=== PATIENT | female | born 1975 | race Caucasian/White ===

== ENCOUNTER → 2020-09-09 16:36 | Outpatient (CLI) | payer OTHER, SELFPAY ==
--- NOTE | ~2020-09-09 | MM_ITS ---
EXAMINATION: MM screening [facility] BI w alexandra HISTORY: Screening mammogram TECHNIQUE: Craniocaudal and mediolateral oblique 3-D tomosynthesis images were obtained and synthetic 2-D images were generated. CAD analysis was submitted and interpreted. COMPARISON: 07/12/2019, 05/25/2018 bilateral digital screening mammogram examinations BREAST PARENCHYMAL COMPOSITION: There are scattered areas of fibroglandular density. FINDINGS: There is no evidence of suspicious mass, calcification, or architectural distortion to sugg est malignancy in either breast. There has been no suspicious interval change. IMPRESSION: 1. No mammographic evidence of malignancy. 2. Recommend routine screening mammography in one year. BI-RADS Category 1: Negative Reviewed, dictated and finalized at location A. 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
== END ==
PROVIDERS: Visit Provider Obstetrics & Gynecology
DX: Z12.31 Encounter for screening mammogram for malignant neoplasm of breast (principal)
CPT/HCPCS: 77063; 77067

== ENCOUNTER → 2021-12-17 16:51 | Outpatient (CLI) | payer OTHER, SELFPAY ==
--- NOTE | ~2021-12-17 | MM_ITS ---
EXAMINATION: MM screening [facility] BI w alexandra HISTORY: Screening mammogram TECHNIQUE: Craniocaudal and mediolateral oblique 3-D tomosynthesis images were obtained and synthetic 2-D images were generated. CAD analysis was submitted and interpreted. COMPARISON: 09/09/2020, 07/12/2019, 05/25/2018 BREAST PARENCHYMAL COMPOSITION: There are scattered areas of fibroglandular density. FINDINGS: There is no evidence of suspicious mass, calcification, or architectural distortion to sugg est malignancy in either breast. There has been no suspicious interval change. IMPRESSION: 1. No mammographic evidence of malignancy. 2. Recommend routine screening mammography in one year. BI-RADS Category 1: Negative Reviewed, dictated and finalized at location A.
== END ==
PROVIDERS: Visit Provider Obstetrics & Gynecology
DX: Z12.31 Encounter for screening mammogram for malignant neoplasm of breast (principal)
CPT/HCPCS: 77063; 77067

== ENCOUNTER → 2023-02-28 16:25 | Outpatient (CLI) | payer OTHER, SELFPAY ==
--- NOTE | ~2023-02-28 | MM_ITS ---
EXAMINATION: MM screening [facility] BI w alexandra HISTORY: Screening mammogram TECHNIQUE: Craniocaudal and mediolateral oblique 3-D tomosynthesis images were obtained and synthetic 2-D images were generated. CAD analysis was submitted and interpreted. COMPARISON: 12/17/2021, 09/09/2020, 07/12/2019 BREAST PARENCHYMAL COMPOSITION: There are scattered areas of fibroglandular density. FINDINGS: No suspicious mass, calcification, or architectural distortion are identified in either theron ast to suggest malignancy. There has been no suspicious interval change. IMPRESSION: 1. No mammographic evidence of malignancy. 2. Recommend routine screening mammography in one year. BI-RADS Category 1: Negative Reviewed, dictated and finalized at location A.
== END ==
PROVIDERS: Visit Provider Obstetrics & Gynecology
DX: Z12.31 Encounter for screening mammogram for malignant neoplasm of breast (principal)
CPT/HCPCS: 77063; 77067

== ENCOUNTER 2023-03-03 16:27 | Emergency (ER) | payer OTHER, SELFPAY ==
[2023-03-03 16:36] VITALS: BP 132/72; PULSE 74; RESP 16; TEMP 37.1; O2SAT 100
--- NOTE | 2023-03-03 16:38 | ED.WOUNDLAC ---
HPI - Wound/Laceration General Chief Complaint: Skin/Abscess/Foreign Body Stated Complaint: poss infected finger Time Seen by Provider: 03/03/23 16:39 Source: patient Mode of arrival: ambulatory Limitations: no limitations History of Present Illness HPI narrative: 47-year-old female presented for complaint of redness and swelling around the right index worsening over few days. She states about 12 days ago she broke up a fight between two puppies and one bit the finger at this site. Today she pressed it and it drained pus out of the site. Patient cleansed it with hydrogen peroxide and used Neosporin. Denies numbness, tingling or weakness to the hand, denies fever or streaking from wound. Related Data Home Medications Medication Instructions Recorded Confirmed fluoxetine 40 mg capsule 40 mg PO DAILY 03/03/23 03/03/23 norgestrel 0.3 mg-ethinyl 1 tablet PO DAILY 03/03/23 03/03/23 estradiol 30 mcg tablet (Elinest) omeprazole 20 mg capsule,delayed 20 mg PO DAILY 03/03/23 03/03/23 release Allergies Allergy/AdvReac Type Severity Reaction Status Date / Time Sulfa (Sulfonamide Allergy Mild Rash Verified 03/03/23 16:36 Antibiotics) Review of Systems Review of Systems: CONSTITUTIONAL: Denies body aches, fever, chills, or sweats. EYES: Denies visual changes, redness, or discharge. ENT: Denies rhinorrhea, congestion CARDIOVASCULAR: Denies chest pain, palpitations, or edema. RESPIRATORY: Denies cough or dyspnea. GASTROINTESTINAL: Denies abdominal pain, nausea, vomiting, or diarrhea. SKIN: per HPI MUSCULOSKELETAL: Denies back pain, joint pain, or myalgia. NEUROLOGIC: Denies headache, numbness, tingling, or weakness. [facility] Past Medical History Medical History (Updated 03/03/23 @ 16:47 by Francisca Lopes APRN) No pertinent past medical history Comments At time of signature, I have reviewed and agree with nursing past medical, surgical, social and family history unless otherwise noted. Please see nursing chart for further information. There is no relevant family history pertinent to the presenting complaint Exam Narrative: GENERAL: Well-appearing HEAD: Normocephalic, atraumatic. EYES: conjunctivae clear, and EOMI. ENT: Mucous membranes moist. Oropharynx without edema, erythema or lesions. NECK: Supple. No lymphadenopathy CHEST: Clear to auscultation. HEART: Regular rate and rhythm. SKIN: Warm, dry. Left 2nd finger ulnar aspect with swelling and erythema around the nail, c/w paronychia; minimal fluctuance, no active drainage. Site is tender. NEURO: Alert and oriented x3. Course Course Emergency Course: Patient is aware of diagnosis, understands and agrees to treatment plan. Anticipatory guidance given. Patient agrees to follow-up as directed and is aware of reasons to seek care at the emergency department. Portions of this record may have been created with voice recognition software Level of Care: Express Care Visit Vital Signs Vital signs: Vital Signs Temperature 98.7 F 03/03/23 16:36 Pulse Rate 74 03/03/23 16:36 Respiratory Rate 16 03/03/23 16:36 Blood Pressure 132/72 03/03/23 16:36 Pulse Oximetry 100 03/03/23 16:36 Oxygen Delivery Room Air 03/03/23 16:36 Temperature 98.7 F 03/03/23 16:36 Pulse Rate 74 03/03/23 16:36 Respiratory Rate 16 03/03/23 16:36 Blood Pressure 132/72 03/03/23 16:36 Pulse Oximetry 100 03/03/23 16:36 Oxygen Delivery Room Air 03/03/23 16:36 Reviewed MDM - Wound/Laceration MDM Narrative Medical decision making narrative: Finger soaked in warm soapy water however the site still did not provide any fluctuance to indicate I&D. It did drain for her at home today. Patient understands and will start abx as directed. Discussed physical exam findings. Advised supportive measures and signs/symptoms to go to the ER. Pt is appropriate for outpt treatment and f/u. Differential Diagnosis Differential diagnosis: Likely
== END 2023-03-03 16:55 | disposition home or self-care (01) ==
PROVIDERS: Emergency Provider Nurse Practitioner Family
DX: L03.012 Cellulitis of left finger (principal); K21.9 Gastro-esophageal reflux disease without esophagitis; F41.9 Anxiety disorder, unspecified; F32.A Depression, unspecified
CPT/HCPCS: 99213; G0463

== ENCOUNTER 2023-11-16 16:11 | Outpatient (CLI) | payer OTHER, SELFPAY ==
--- NOTE | ~2023-11-16 | US_ITS ---
EXAMINATION: US thyroid DATE: 11/16/2023 16:51 INDICATION: Thyroid nodule. TECHNIQUE: Multiple ultrasound images of the thyroid were obtained. COMPARISON: Ultrasound 03/09/2016 FINDINGS: The right thyroid lobe measures 5.4 x 2.0 x 2.2 cm. The left thyroid lobe measures 5.1 x 2.0 x 2.1 c m. In the left thyroid lobe, there is a 2.8 cm solid, hypoechoic, wider than tall nodule with smooth margin without echogenic foci (TI-RADS TR4), stable from 03/09/16. In the right thyroid lobe, there is a 9 mm solid, hypoechoic, wider than tall nodule with smooth margin without echogenic foci (TR4). In the right thyroid lobe, there is a 6 mm mixed cystic and solid, hypoechoic, wider than tall nodule w ith smooth margin without echogenic foci (TR3). IMPRESSION: 1. Thyroid nodules, likely not clinically significant. No follow-up is needed. Reviewed, dictated and finalized at location E. 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
== END 2023-11-16 16:12 | disposition home or self-care (01) ==
PROVIDERS: PCP Family Medicine; Visit Provider Internal Medicine
DX: E04.2 Nontoxic multinodular goiter (principal); R94.6 Abnormal results of thyroid function studies
CPT/HCPCS: 76536

== ENCOUNTER 2023-12-18 06:34 | Outpatient (CLI) | payer OTHER, SELFPAY ==
--- NOTE | ~2023-12-18 | NM_ITS ---
EXAMINATION: NM thyroid scan w uptake DATE: 12/19/2023 09:57 INDICATION: Subclinical hyperthyroidism. Multinodular goiter. COMPARISON: Thyroid scintigraphy 03/02/2016, thyroid ultrasound 11/16/2023 TECHNIQUE: 0.525 mCi I-123 was administered orally. Scintigraphic images of the thyroid gland were o btained at 24 hours. Thyroid uptake was calculated by the technologist. FINDINGS: The thyroid uptake is 21% (normal 10-30%), with the right lobe measuring 8% uptake and the left 13%. There is no focal area of decreased or increased activity to suggest hypofunctioning or hyperfunction ing nodule. IMPRESSION: 1. Normal thyroid scintigraphy and 24-hour iodine uptake. Reviewed, dictated and finalized at location A.
== END 2023-12-18 06:35 | disposition home or self-care (01) ==
PROVIDERS: Visit Provider Internal Medicine
DX: R94.6 Abnormal results of thyroid function studies (principal); E04.1 Nontoxic single thyroid nodule; E05.90 Thyrotoxicosis, unspecified without thyrotoxic crisis or storm
CPT/HCPCS: 78014; A9516

== ENCOUNTER 2024-03-25 15:53 | Outpatient (CLI) | payer OTHER, SELFPAY ==
--- NOTE | ~2024-03-25 | MM_ITS ---
EXAMINATION: MM screening [facility] BI w alexandra HISTORY: Screening TECHNIQUE: Craniocaudal and mediolateral oblique 3-D tomosynthesis images were obtained and synthetic 2-D images were generated. CAD analysis was submitted and interpreted. COMPARISON: Comparison to multiple prior studies sequentially, with oldest reviewed study dated 05/25. BREAST PARENCHYMAL COMPOSITION: Not dense: There are scattered areas of fibroglandular density. FINDINGS: There is no evidence of suspicious mass, calcification, or architectural distortion to sugg est malignancy in either breast. There has been no suspicious interval change. IMPRESSION: 1. No mammographic evidence of malignancy. 2. Recommend routine screening mammography in one year. BI-RADS Category 1: Negative Reviewed, dictated and finalized at location B.
== END 2024-03-25 15:54 ==
LOC: MICIMG 15:54
PROVIDERS: PCP Family Medicine; Visit Provider Obstetrics & Gynecology
DX: Z12.31 Encounter for screening mammogram for malignant neoplasm of breast (principal)
CPT/HCPCS: 77063; 77067

== ENCOUNTER 2024-10-28 09:30 | Outpatient (CLI) | payer OTHER, SELFPAY ==
--- NOTE | ~2024-10-28 | US_ITS ---
EXAMINATION: US thyroid DATE: 10/28/2024 10:41 INDICATION: Thyroid nodule. TECHNIQUE: Multiple ultrasound images of the thyroid were obtained. COMPARISON: Thyroid ultrasound 11/16/2023, 03/09/2016 FINDINGS: The right thyroid lobe measures 5.3 x 1.9 x 1.9 cm. The left thyroid lobe measures 5.3 x 1.9 x 2.5 c m. In the left thyroid lobe, there is a 2.9 cm solid, hypoechoic, wider than tall nodule with ill-de fined margin without echogenic foci (TI-RADS TR4), stable from 03/09/16. In the right thyroid lobe, the re is a 6 mm solid, hypoechoic, wider than tall nodule with smooth margin without echogenic foci (TR4 ). In the right thyroid lobe, there is a 1.9 cm solid, isoechoic, wider than tall nodule with ill-def ined margin without echogenic foci (TR3), stable from 03/09/16. IMPRESSION: 1. Multinodular goiter, likely not clinically significant. No follow-up is needed. Reviewed, dictated and finalized at location B. NOLOGY ARCHITECT IMPRESSION: 1. Multinodular goiter, likely not clinically significant. No follow-up is need ed.
--- OUTSIDE RECORDS SUMMARY | 2024-10-31 12:27 | XMS_ITS | Clinical Summary ---
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 Gender Identity Not on file Sexual Orientation Not on file Plan of Treatment Health Maintenance Due Date Last Done Comments Hepatitis C Virus (HCV) Screening 1976 TdaP Immunization 1976 Hepatitis B Immunization (1 of 3 - 19+ 3-dose series) 1995 Pap Smear 1997 Cervical Cancer Screening (CCS) 2006 HPV/Cotest 2006 Discussion re Starting/Frequ ency of Mammograms 2016 Colonoscopy 2021 Colorectal Cancer Screening 2021 Influenza Immunization (#1) 2024 07/15/2020 SARS-COV-2 Immunization ( season) 2024 Respiratory Syncytial Virus (RSV) Immunization (Adult) (1 - 1-dose 75+ series) 2051 Meningococcal Immunization (ACWY) Aged Out No longer eligible based on patient's age to complete this topic Pneumococcal Immunization Combined Aged Out No longer eligible based on patient's age to complete this topic Rotavirus Immunization Aged Out No lo nger eligible based on patient's age to complete this topic
--- OUTSIDE RECORDS SUMMARY | 2024-10-31 12:27 | XMS_ITS | Clinical Summary ---
Author Organization [facility] [address] Address [address] [place] [id number] Care Team Providers Care Street Department Dispatcher Name Role Phone Colette Simpson MD Primary Care Provider + Allergies Active Allergy Reactions Criticality Noted Date Comments Sulfa Rash Medium 05/09/2024 Medications No known medications Active Problems No known active problems Social History Tobacco Use Types Packs/Day Years Used Date Smoking Tobacco: Never Assessed Personal Safety Answer Date Recorded Getting School Help Needed Not on file 04/24 Comments Unknown Sex and Gender Information Value Date Recorded Sex Assigned at Not on file 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 Gender Identity Not on file Sexual Orientation Not on file Last Filed Vital Signs Vital Sign Reading Time Taken Comments Blood Pressure 133/89 05/09/2024 11:40 AM CDT Pulse 76 05/09/2024 11:40 AM CDT Temperature - - Respiratory Rate - - Oxygen Saturation - - Inhaled Oxygen Concentration - - Weight 87.5 kg (193 lb) 05/09/2024 11:40 AM CDT Height 165.1 cm (5' 5 ) 05/09/2024 11:40 AM CDT Body Mass Index 32.12 05/09/2024 11:40 AM CDT Plan of Treatment Health Maintenance Due Date Last Done Comments Breast Cancer Screening-Mammogram 1976 Cervical Cancer Screening 1976 Colon Cancer Screening-Colonoscopy 1976 Depression Screening 1976 Hepatitis C Screening 1976 Pneumococcal vaccine <65 (1 of 2 - PCV) 1982 DTaP/Tdap/Td Vaccine (1 - Tdap) 1987 Hepatitis B Screening 1994 Regular Well Visit/Exam 18-64 1994 Covid-19 Vaccine ( season) 06/09/202411/2021, 01/16/2021 Influenza Vaccine (#1) 2024 07/15/2020 Insurance [facility] PL[facility] HMO/PPO Address: [facility] [id number] [place] [id number] Department Dispatcher Relationship Specialty Start Date End Date Colette Simpson MD PCP - General Family Medicine 04/24/24
--- OUTSIDE RECORDS SUMMARY | 2024-10-31 12:27 | XMS_ITS | Referral Summary ---
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
--- OUTSIDE RECORDS SUMMARY | 2024-10-31 12:27 | XMS_ITS | Patient Health Summary ---
Author Organization [facility] Address [address] [place] [address] Care Team Providers Care Stock Roller Name Role Phone Epi Shook DO Primary Care Provider [phone] Note from [facility],non-owned Affiliates and Associated Physician Practices is amultiple site organization consisting of ambulatory clinics and hospital sitesin [place], [place], [place] and [place]. This disclosure is being madepursuant to the Care Everywhere program and may not contain all information available regarding this patient. Last updated 18.[facility] Allergies * Sulfa Drugs(Rash) -Medium Criticality Medications * Be aware that medications may not be up to date on this document. Alwaysverify current medications with the patient. 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 Pulse 96 01/09/2020 9:18 AM CDT Temperature 37.9 ??C (100.2 ??F) 01/09/2020 9:18 AM C DT Respiratory Rate 16 01/09/2020 9:18 AM CDT Oxygen Saturation 98% 01/09/2020 9:18 AM CDT Inhaled Oxygen Concentration - - Weight 84.4 kg (186 lb) 01/09/2020 9:18 AM CDT Height 165.1 cm (5' 5 ) 01/09/2020 9:18 AM CDT Body Mass Index 30.95 01/09/2020 9:18 AM CDT Procedures * STREP A SCREEN - POINT OF CARE (AMB) STL(Performed 01/09/2020) Performed for Pharyngitis due to Streptococcus species * NM THYROID UPTAKE AND SCAN(Performed 07/27/2016) * FERRITIN(Performed 06/16/2016) * IRON + TIBC PANEL(Performed 06/16/2016) * T3 FREE DIALYSIS LC/MS(Performed 06/16/2016) * T4 FREE DIRECT DIALYSIS(Performed 06/16/2016) * TSH(Performed 06/16/2016) * TSH W HAMA TREATMENT(Performed 06/16/2016) Results * (ABNORMAL) STREP A SCREEN (01/09/2020) Strep A Rapid POCT Positive(A) Negative Strep A Internal Control Present Lot # [id number] Expiration Date 06/08/2021 Throat ENTIRE THROAT (SURFACE REGION OF NECK) / Unknown 01/09/2020 [employer] 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 Slightly enlarged thyroid lobes with increased uptake in the upper pole of the left lobe which likely represents a warm nodule. No definite evidence of a discrete cold nodule. 2. I-123 thyroid uptake of ??26.5% indicative of ??normal functioning thyroid gland. This report was approved ??by Bharat Peters ?? on 07/27/2016 12:47 PM . I, Dr. GLORIA ESCOBAR D.O. have personally reviewed and interpreted this examination/study. This report was electronically signed by GLORIA ESCOBAR D.O. ??on 07/27/2016 1:18 PM . Narrative 07/27/2016 1:18 PM CDT Procedure: Thyroid Uptake and Imaging. Agent: 0.2 mCi of I-123 Na Iodide capsule orally History: 41-year-old female with multinodular goiter and hyperthyroidism. Most recent labs on 06/16/2016, is TSH of ??0.3 micro-IU/mL, and FT4 of 1.2 ng/dL. Findings: Static anterior and anterior-oblique images show enlarged size of thyroid lobes with homogenous tracer distribution in the right lobe and focal increased uptake in the upper pole of the left lobe which represent a warm nodule. There is no discernible cold nodule. I-123 uptake within the thyroid gland at 24 hours 26.5%. ( Normal limits: 15%- 35%) Procedure Note Gloria Escobar, DO - 01/06/2018 Procedure: Thyroid Uptake and Imaging. Agent: 0.2 mCi of I-123 Na Iodide capsule orally History: 41-year-old female with multinodular goiter and hyperthyroidism. Mostrecent labs on 06/16/2016, is TSH of 0.3 micro-IU/mL, and FT4 of 1.2ng/dL. Findings: Static anterior and anterior-oblique images show enlarged size of thyroidlobes with homogenous tracer distribution in the right lobe and focalincreased uptake in the upper pole of the left lobe which represent a warmnodule. There is no discernible cold nodule. I-123 uptake within the thyroid gland at 24 hours 26.5%. ( Normal limits:15%- 35%) IMPRESSION Impression: 1. Slightly enlarged thyroid lobes with increased uptake in the upper poleof the left lobe which likely represents a warm nodule. No definiteevidence of a discrete cold nodule. 2. I-123 thyroid uptake of 26.5% indicative of normal functioningthyroid gland. This report was approved by Bharat Peters on 07/27/2016 12:47 PM . IDr. GLORIA D.O. have personally reviewed and interpreted thisexamination/study. This report was electronically signed by GLORIA ESCOBAR D.O. on07/27/2016 1:18 PM . Juan Stroud MD NM ORDERABLES * (ABNORMAL) TSH W HAMA TREATMENT (06/16/2016 12:40 PM CDT) TSH HAMA Treated 0.30(L) SEE BELOW mIU/L [facility] TSH Untreated 0.30(L) 0.40 - 4.50 mIU/L [facility] Comment: Female Reference Ranges for TSH: Premature Infants, (28-36) weeks ?? 1st week of life ? 0.20-27.90 mIU/L Term infants, (>37 weeks) Serum or Cord Blood ? 1.00-39.00 mIU/L ? 1-2 days ? 3.20-34.60 mIU/L ? 3-4 days ? 0.70-15.40 mIU/L ? 5 days-4 weeks ? 1.70-9.10 mIU/L ?1-11 months ? 0.80-8.20 mIU/L ? 1-19 years ? 0.50-4.30 mIU/L ?> or = 20 years ? 0.40-4.50 mIU/L TSH levels decline rapidly during the first week of life in most children, but may remain transiently elevated in a few individuals despite normal free T4 levels. For proper interpretation of an abnormal TSH from a thyroid screen, a Free T4 by [place]ialysis (TC [address]) or T4, Total (Thyroxine) ([place] [address]) should be considered. ? Ranges First Trimester ?0.26-2.66 mIU/L Second Trimester ?? 0.55-2.73 mIU/L Third Trimester ?0.43-2.91 mIU/L For additional information, please refer to http://education.Rebel Monkey/faq/WEO861 (This link is being provided for informational/educational purposes only.) Test Performed at: [facility] [address] [place], [place] ??[phone] KIRSTIE ESTRADA MD PHD 06/16/2016 12:4 0 PM CDT 06/16/2016 12:41 PM CDT Juan Stroud MD LAB - CHEMISTRY JULIETTE NICOLE Performing Organization Address [facility] de Phone Number [facility] * T3 FREE DIALYSIS LC/MS (06/16/2016 12:40 PM CDT) T3 Free 272 210 - 440 pg/dL [facility] Comment: Reference Ranges for Free T3: ?200-380 pg/dL (all trimesters) T3 Total 125 76 - 181 ng/dL [facility] Comment: Test Performed at: [facility] [address] ??[phone] KIRSTIE ESTRADA MD PHD 06/16/2016 12:4 0 PM CDT 06/16/2016 12:41 PM CDT Juan Stroud MD LAB - CHEMISTRY JULIETTE NICOLE Performing Organization Address [facility] de Phone Number [facility] * T4 FREE DIRECT DIALYSIS (06/16/2016 12:40 PM CDT) T4 Free Direct Dialysis 1.2 0.8 - 2.7 ng/dL [facility] Comment: Reference Ranges for T4, Free, Direct Dialysis: First Trimester: ?? 0.9-2.0 ng/dL Second Trimester: ??0.8-1.5 ng/dL Third Trimester: ?? 0.8-1.7 ng/dL This test was developed and its analytical performance characteristics have been determined by [facility]. It has not been cleared or approved by FDA. This assay has been validated pursuant to the CLIA regulations and is used for clinical purposes. Test Performed at: [facility] [address] ??[phone] KIRSTIE ESTRADA MD PHD Blood specimen (specimen) BLOOD SPECIMEN / Unknown 06/16/2016 12:40 PM CDT 06/16/2016 12:41 PM CDT Juan Stroud MD LAB - CHEMISTRY JULIETTE NICOLE Performing Organization Address [facility] de Phone Number [facility] * IRON + TIBC PANEL (06/16/2016 12:40 PM CDT) Iron 54 40 - 190 mcg/dL [facility] TIBC 411 250 - 450 mcg/dL (calc) [facility] Iron Saturation 13 11 - 50 % (calc) [facility] Comment: Test Performed at: [facility] [address] [place], [place] ??[phone] PEGGY NOLAN DO,MPH Serum 06/16/2016 12:4 0 PM CDT 06/16/2016 12:41 PM CDT Juan Stroud MD LAB - CHEMISTRY JULIETTE NICOLE Performing Organization Address [facility] de Phone Number [facility] * (ABNORMAL) TSH (06/16/2016 12:40 PM CDT) Pathologist [facility] TSH 0.30(L) mIU/L [facility] Comment: ?Reference Range ?> or = 20 Years ??0.40-4.50 ? Ranges ?First trimester ?0.26-2.66 ?Second trimester ?? 0.55-2.73 ?Third trimester ?0.43-2.91 Test Performed at: [facility] [address] [place], [place] ??[phone] PEGGY NOLAN DO,MPH Blood specimen (specimen) BLOOD SPECIMEN / Unknown 06/16/2016 12:40 PM CDT 06/16/2016 12:41 PM CDT Juan Stroud MD LAB - CHEMISTRY JULIETTE NICOLE [facility] * FERRITIN (06/16/2016 12:40 PM CDT) Ferritin 17 10 - 154 ng/mL [facility] Comment: Test Performed at: [facility] [address] [place] [address] ??[phone] PEGGY NOLAN DO,MPH Blood specimen (specimen) BLOOD SPECIMEN / Unknown 06/16/2016 12:40 PM CDT 06/16/2016 12:41 PM CDT Juan Stroud MD LAB - CHEMISTRY JULIETTE NICOLE [facility] Care Teams Stock Roller Relationship Specialty Start Date End Date Epi Shook DO PCP - General Internal Medicine 11/20/18
--- OUTSIDE RECORDS SUMMARY | 2024-10-31 12:27 | XMS_ITS | Data Portability ---
Author Organization [place] [employer], Main Office Address [address] [place] [address] Care Team Providers Care Farm Management Agent Name Role Phone [place] Primary Care Provider [place] Referring Provider [phone] Assessment No assessment recorded. Plan of Treatment Reminders Order Date Submit Date Provider Last Modified By Organization Details Last Modified Time Details Appointments None recorded. Lab lipid panel, serum 2022 023 [email or web address] Not available 17:31:28 HbA1c (hemoglobin A1c), blood 2022 023 [email or web address] Not available 17:30:23 BMP, serum or plasma 2022 023 [email or web address] Not available 3 17:30:42 T4, free, serum 2022 023 [email or web address] Not available 17:32:59 TSH, serum or plasma 2022 023 [email or web address] Not available 3 17:31:04 vitamin D, 25-hydroxy, total, serum 2022 023 [email or web address] Not available 3 17:32:43 ferritin, serum or plasma 2022 023 [email or web address] Not available 3 17:31:47 iron + total iron-bindin g capacity (TIBC), serum 2022 023 [email or web address] Not available 3 17:32:06 CBC w/ auto diff 2022 023 [email or web address] Not available 17:32:22 Referral gastroenter ologist referral 2022 023 aurelia Villegas MD, [address] [facility], [facility] [address], [place], [address], 3 10:27:45 Procedures None recorded. Surgeries None recorded. Imaging None recorded. Medication Orders omeprazole 20 mg capsule,del ayed release 2022 023 [email or web address] [facility] [address], [address] [facility], [place], [address], 18:30:14 Patient TargetsNo targets recorded. Patient InstructionsNo instructions recorded. 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 for Screening for malignant neoplasm of colon Referring Physician: Belem Puente, Family Medicine, Encounter Date: 02/08/2023 Results Created Date Observation Date Name Description Value Unit Range Abnormal Flag Note LastModifiedBy Organization Detail LastModifiedTime 02/10/20 23 02/09/2023 CBC/C OMPLE TE BLD COUNT W/DIF F white blood cells 8.9 x10'3 /uL 4.2-10 .8 Not Available [facility] (Lab) [address] [place], [address], 02/09/2023 19:32:30 02/10/20 23 02/09/2023 CBC/C OMPLE TE BLD COUNT W/DIF F red blood cells 4.70 x10'6 /uL 3.80-5 .20 Not Available [facility] (Lab) [address] [place], [address], 02/09/2023 19:32:30 02/10/20 23 02/09/2023 CBC/C OMPLE TE BLD COUNT W/DIF F hemoglobin 13.1 g/dL 12.0-1 5.6 Not Available [facility] (Lab) [address] [place], [address], 02/09/2023 19:32:30 02/10/20 23 02/09/2023 CBC/C OMPLE TE BLD COUNT W/DIF F hematocrit 40.8 % 35.7-4 5.7 Not Available [facility] (Lab) [address] [place], [address], 02/09/2023 19:32:30 02/10/20 23 02/09/2023 CBC/C OMPLE TE BLD COUNT W/DIF F mean red cell volume 86.8 fL 82.0-9 9.0 Not Available [facility] (Lab) [address] [place], [address], 02/09/2023 19:32:30 02/10/20 23 02/09/2023 CBC/C OMPLE TE BLD COUNT W/DIF F mean red cell hemoglobin 27.9 pg 27.0-3 3.0 Not Available [facility] (Lab) [address] [place], [address], 02/09/2023 19:32:30 02/10/20 23 02/09/2023 CBC/C OMPLE TE BLD COUNT W/DIF F mean RBC HGB concentratio n 32.1 g/dL 31.0-3 6.0 Not Available [facility] (Lab) [address] [place], [address], 02/09/2023 19:32:30 02/10/20 23 02/09/2023 CBC/C OMPLE TE BLD COUNT W/DIF F red cell distribution width 14.2 % 11.8-1 5.5 Not Available [facility] (Lab) [address] [place], [address], 02/09/2023 19:32:30 02/10/20 23 02/09/2023 CBC/C OMPLE TE BLD COUNT W/DIF F platelets 398 x10'3 /uL 150-40 0 Not Available [facility] (Lab) [address] [place], [address], 02/09/2023 19:32:30 02/10/20 23 02/09/2023 CBC/C OMPLE TE BLD COUNT W/DIF F mean platelet volume 10.7 fL 9.0-12 .4 Not Available [facility] (Lab) [address] [place], [address], 02/09/2023 19:32:30 02/10/20 23 02/09/2023 CBC/C OMPLE TE BLD COUNT W/DIF F neutrophils 72.6 % 39.0-7 2.0 high Not Available [facility] (Lab) [address] [place], [address], 02/09/2023 19:32:30 02/10/20 23 02/09/2023 CBC/C OMPLE TE BLD COUNT W/DIF F lymphocytes 18.4 % 16.0-4 7.0 Not Available [facility] (Lab) [address] [place], [address], 02/09/2023 19:32:30 02/10/2002/09/2023 CBC/C OMPLE TE BLD COUNT W/DIF F monocytes 7.3 % 5.0-12 .0 Not Available [facility] (Lab) [address] [place], [address], 02/09/2023 19:32:30 02/10/20 23 02/09/2023 CBC/C OMPLE TE BLD COUNT W/DIF F eosinophils 1.2 % 1.0-7. 0 Not Available [facility] (Lab) [address] [place], [address], 02/09/2023 19:32:30 02/10/20 23 02/09/2023 CBC/C OMPLE TE BLD COUNT W/DIF F basophils 0.3 % 0.0-2. 0 Not Available [facility] (Lab) [address] [place], [address], 02/09/2023 19:32:30 02/10/20 23 02/09/2023 CBC/C OMPLE TE BLD COUNT W/DIF F immature granulocytes 0.2 % 0.00-0 .50 Not Available [facility] (Lab) [address] [place], [address], 02/09/2023 19:32:30 02/10/20 23 02/09/2023 CBC/C OMPLE TE BLD COUNT W/DIF F neutrophils, absolute count 6.41 x10'3 /uL 1.5-8. 0 Not Available [facility] (Lab) [address] [place], [address], 02/09/2023 19:32:30 02/10/20 23 02/09/2023 CBC/C OMPLE TE BLD COUNT W/DIF F lymphocytes, absolute count 1.63 x10'3 /uL 1.07-3 .43 Not Available [facility] (Lab) [address] [place], [address], 02/09/2023 19:32:30 02/10/20 23 02/09/2023 CBC/C OMPLE TE BLD COUNT W/DIF F monocytes, absolute count 0.65 x10'3 /uL 0.29-0 .99 Not Available [facility] (Lab) [address] [place], [address], 02/09/2023 19:32:30 02/10/20 23 02/09/2023 CBC/C OMPLE TE BLD COUNT W/DIF F eosinophils, absolute count 0.11 x10'3 /uL 0.02-0 .53 Not Available [facility] (Lab) [address] [place], [address], 02/09/2023 19:32:30 02/10/20 23 02/09/2023 CBC/C OMPLE TE BLD COUNT W/DIF F basophils, absolute count 0.03 x10'3 /uL 0.01-0 .08 Not Available [facility] (Lab) [address] [place], [address], 02/09/2023 19:32:30 02/10/20 23 02/09/2023 CBC/C OMPLE TE BLD COUNT W/DIF F immature granulocytes ,absolute 0.02 x10'3 /uL 0.00-0 .05 Not Available [facility] (Lab) [address] [place], [address], 02/09/2023 19:32:30 02/10/20 23 02/09/2023 CBC/C OMPLE TE BLD COUNT W/DIF F nucleated red blood cells 0.0 % -0 Not Available [facility] (Lab) [address] [place], [address], 02/09/2023 19:32:30 02/10/20 23 02/09/2023 CBC/C OMPLE TE BLD COUNT W/DIF F NRBC# 0.00 x10'3 /uL Not Available [facility] (Lab) [address] [place], [address], 02/09/2023 19:32:30 02/10/20 23 02/09/2023 IRON/ TIBC PANEL total iron binding capacity 439 mcg/d L 265-47 5 Not Available [facility] (Lab) [address] [place], [address], 02/09/2023 20:03:01 02/10/20 23 02/09/2023 IRON/ TIBC PANEL % transferrin saturation 17 % 20-55 low Not Available [facility] (Lab) [address] [place], [address], 02/09/2023 20:03:01 02/10/20 23 02/09/2023 IRON/ TIBC PANEL unsaturated iron bind capacity 363 mcg/d L 126-38 2 Not Available [facility] (Lab) [address] [place], [address], 02/09/2023 20:03:01 02/10/20 23 02/09/2023 IRON/ TIBC PANEL iron 76 mcg/d L 42-175 Not Available [facility] (Lab) [address] [place], [address], 02/09/2023 20:03:01 02/10/20 23 02/09/2023 BASIC METAB OLIC PANEL sodium 135 mmol/ L 137-14 5 low Not Available [facility] (Lab) [address] [place], [address], 02/09/2023 20:00:44 02/10/20 23 02/09/2023 BASIC METAB OLIC PANEL potassium 4.1 mmol/ L 3.5-5. 1 Not Available [facility] (Lab) [address] [place], [address], 02/09/2023 20:00:44 02/10/20 23 02/09/2023 BASIC METAB OLIC PANEL chloride 105 mmol/ L 98-107 Not Available [facility] (Lab) [address] [place], [address], 02/09/2023 20:00:44 02/10/20 23 02/09/2023 BASIC METAB OLIC PANEL carbon dioxide 24 mmol/ L 22-30 Not Available [facility] (Lab) [address] [place], [address], 02/09/2023 20:00:44 02/10/20 23 02/09/2023 BASIC METAB OLIC PANEL anion gap 10.1 mmol/ L 14-22 low Not Available [facility] (Lab) [address] [place], [address], 02/09/2023 20:00:44 02/10/20 23 02/09/2023 BASIC METAB OLIC PANEL glucose 98 mg/dL 70-99 Not Available [facility] (Lab) [address] [place], [address], 02/09/2023 20:00:44 02/10/2002/09/2023 BASIC METAB OLIC PANEL BUN 15 mg/dL 8-19 Not Available [facility] (Lab) [address] [facility] [place], [address], 02/09/2023 20:00:44 02/10/2002/09/2023 BASIC METAB OLIC PANEL creatinine 0.63 mg/dL 0.66-1 .25 low Not Available [facility] (Lab) [address] [facility] [place], [address], 02/09/2023 20:00:44 02/10/2002/09/2023 BASIC METAB OLIC PANEL GFR >60 Refer ence Range : Sweetser ge GFR Healt hy Adult : >60 mL/mi n/1.7 3 m2 Chron ic Kidne y Disea se: 15-60 mL/mi n/1.7 3 m2 Kidne y Failu re: <15/m L/min /1.73 m2 www.n iddk. nih.g ov The MDRD study equat ion has not been valid ated in child sherin <18 years of age; pregn ant women ; the elder ly >85 years of age; or in some racia l or ethni c subgr oups, such as Hiswi nics. Outsi de the valid ated wesley eters , estim ated GFR is less accur ate, requi ring clini janel judgm ent on a case- by-ca se basis . Clini janel inter preta tion for other races and ages must be made by the clini placido. The MDRD study equat ion has not been valid ated for the evalu ation of serum creat inine relat ed to nutri anali l statu s or medic ation usage . For perso ns <18 years of age, a pedia tric GFR calcu lator is avail able on the [facility] websi te: https ://alison rand.cyndee de la garza.o denise/pr ofess ional s/kdo qi/gf r_cal culat or Not Available [facility] (Lab) [address] [place], [address], 02/09/2023 20:00:44 02/10/20 23 02/09/2023 BASIC METAB OLIC PANEL calcium 9.0 mg/dL 8.4-10 .2 Not Available [facility] (Lab) [address] [place], [address], 02/09/2023 20:00:44 02/10/20 23 02/09/2023 VITAM IN D 25-HY DROXY [id number] 41.4 NG/mL 30-100 Vitam in D Statu s: Defic ient: <20 ng/mL Insuf ficie nt: 20-29 ng/mL Suffi cient : 30-10 0 ng/mL Not Available [facility] (Lab) [address] [place], [address], 02/09/2023 20:09:37 02/10/20 23 02/09/2023 T4 FREE free T4 1.14 NG/dL 0.78-2 .19 Not Available [facility] (Lab) [address] [place], [address], 02/09/2023 20:10:18 02/10/20 23 02/09/2023 TSH thyroid-stim ulating hormone 0.351 uIU/m L 0.465- 4.680 low Not Available [facility] (Lab) [address] [place], [address], 02/09/2023 20:22:49 02/10/20 23 02/09/2023 KAMRYN TIN ferritin 34 NG/mL 6.24-1 37 Not Available [facility] (Lab) [address] [place], [address], 02/09/2023 20:41:50 02/10/20 23 02/09/2023 HEMOG LOBIN A1C HA1C 5.4 % 4.0-6. 0 Diabe jose alberto [place] pool Crite chance: <5.7% Consi stent with absen ce of diabe jose ablerto 5.7-6 .4% Consi stent with incre ased risk for diabe jose alberto (pred iabet es) >OR=6 .5% Consi stent with diabe jose alberto REFER ENCE: Diabe jose alberto Care 2016, 39(Cummins ppl.1 ):s13 -s22 Not Available Not Available 02/09/2023 21:31:50 09/17/20 21 09/17/2021 XR, foot, 3 or more view No observ ation record ed. [id number] Not Available 12/08/2022 00:34:34 10/25/19 22 XR, foot, 3 or more view No observ ation record ed. [id number] [email or web address] [place] [address], [place], [address], 12/08/2022 00:34:34 11/20/19 24 11/16/2023 US, thyro id No observ ation record ed. [email or web address] [facility] [address], [place], [address], 11/21/2023 12:02:29 Result Notes None recorded. Problems Name Problem SNOMED Code Status Onset Date Resolution Date Notes Provider Name and Address Organization Details Recorded Time Asthma 666847534 Active 2022 Apple larson [employer] null, [employer] 16:45:06 Hyperthyroidis m 54843307 Active 2022 Apple larson [employer] null, [employer] 16:45:53 Endometriosis (clinical) 200779254 Active 2022 Belem Puente MD [address] [facility] [address], [place], [address], [facility] [employer] 3 16:55:36 Gastroesophage al reflux disease 627799890 Active 2022 Belem Puente MD [address] [facility], [place], [address], [employer] 3 16:58:10 Increased thirst 225890434 Active 2022 Belem Puente MD [address], [place], [address], [employer] 3 17:04:48 Fatigue 82423592 Active 2022 Belem Puente MD [address], [place], [address], [employer] 3 17:04:57 Iron deficiency anemia 97589631 Active 2022 Belem Puente MD [address], [address], [place], [address], [employer] 3 17:07:05 Vitamin D deficiency 02956984 Active 2022 Belem Puente MD [address], [address], [place], [address], [employer] 3 17:07:16 Thyroid function tests abnormal 652278310 Active 2022 Belem Puente MD [address], [place], [address], [employer] 3 17:09:51 Problem Notes None recorded. Procedures Surgical History Date Name Laterality Status Provider Name and Address Organization Details Recorded Time section completed Belem Puente MD [address], [place], [address], [employer] 02/08/2023 16:54:29 laparoscopy completed Belem Puente MD [address], [place], [address], [employer] 02/08/2023 16:54:38 Imaging Results Imaging Date Name Status LastModified by Organiz ation Details LastModified Time 09/17/2021 XR, foot, 3 or more view completed [id number] Information not available 12/08/2022 00:34:34 10/25/2021 XR, foot, 3 or more view completed [id number] [facility] [address], [place], [address], 12/08/2022 00:34:34 11/16/2023 US, thyroid completed [email or web address] [facility] [address], [place], [address], 11/21/2023 12:02:29 Procedure Notes None recorded. Medical Equipment None Reported. Allergies Allergen ID Allergen Name Allergen Category Reaction Reaction Severity Criticality Documentation Date Start Date Code Code System Note Provider Name and Address Organization Details Recorded Time 13812 Substance with sulfonami de structure and antibacte rial mechanism of action (substanc e) medicatio n Not available Not available Not available 12/08/2022 37456 8003 SNOMED hives Belem Puente MD [address] [facility], [facility] [address], [place], [address] [place] [address] - [facility] [employer] 16:49:50 Medications Name Sig Start Date Stop Date Status Note LastModified by Organization Details LastModified Time fluoxetine 40 mg capsule TAKE 1 CAPSULE BY MOUTH ONCE DAILY active Not Available Not Available No t Available meloxicam 7.5 mg tablet 02/08 completed Not Available Not Available Not Available omeprazole 20 mg capsule,del ayed release Take 1 capsule every day by oral route. 2022 active Not Available Not Available Not Avai lable Elinest 0.3 mg-30 mcg tablet TAKE 1 TABLET BY MOUTH ONCE DAILY CONTINUOS LY active Not Available Not Available No t Available ID NOW COVID-19 Test Kit TEST DIRECTED active Not Available Not Available No t Available Vitals Date Recorded Body mass index (BMI) Body height Body weight Provider Name and Address Organization Details Last Updated DateTime 09/23/2021 30.8 kg/m2 165.1 cm 80858.59 g Not Available [employer] 12/08/2022 00:28:25 Date Recorded Body mass index (BMI) Body height Body weight Provider Name and Address Organization Details Last Updated DateTime 10/25/2021 32.1 kg/m2 165.1 cm 42498.33 g Not Available [employer] 12/08/2022 00:28:25 Date Recorded Body weight Body mass index (BMI) Body height Body temperature Heart rate Oxygen saturation Oxygen saturation in Arterial blood by Pulse oximetry Systolic blood pressure Diastolic blood pressure Provider Name and Address Organization Details Last Updated DateTime 3 27846.5 9 g 30.8 kg/m2 165.1 cm 98.3 [degF] 76 /min 98 % 98 % 114 mm[Hg] 76 mm[Hg] Apple larson CMA [place] [facility] 16:44:28 Social History Question Answer Notes LastModified by Organizat ion Details LastModified Time Tobacco Smoking Status Never Smoker Not Available [facility] 12/08/2022 00:27:11 What Is Your Level Of Alcohol Consumption? Occasional [email or web address] Information not available 02/08/2023 What Is Your Level Of Caffeine Consumption? Moderate [email or web address] Information not available 02/08/2023 What Type Of Diet Are You Following? REGULAR [email or web address] Information not available 02/08/2023 What Was The Date Of Your Most Recent Tobacco Screening? 02/08/2023 [email or web address] Information not available 02/08/2023 What Is Your Relationship Status? [email or web address] Information not available 02/08/2023 Do You Have Any Dietary Restrictions? No [email or web address] Information not available 02/08/2023 Sex: Female Functional Status Question Answer Note LastModified by Organization D etails LastModified Time What is your exercise level? Moderate [email or web address] Information not available 02/08/2023 Mental Status None recorded. Family History Relationship Description Onset Age of this Age Resolved Age Notes LastModified by Organization Details LastModified Time Father Essential hypertension [id number] Not available 12/08/2022 00:28:13 Mother Essential hypertension [id number] Not available 12/08/2022 00:28:13 Father Polyp of colon [email or web address] Not available 2022 16:50:52 Mother Polyp of colon [email or web address] Not available 2022 16:50:52 Paternal Uncle Malignant tumor of colon [email or web address] Not available 2022 17:02:50 Paternal Aunt Malignant tumor of colon [email or web address] Not available 2022 17:02:50 Medical History No medical history recorded. Gynecological HistoryNo gynecological history recorded. Obstetrics History GPAL:G 0 P 0 0 0 0 Past Encounters Encounter ID Performer Location Encounter Start Date Encounter Closed Date Diagnosis/Indication Diagnosis SNOMED-CT Code Diagnosis ICD10 Code Diagnosis Note [id number] [facility] [place] [address] [place] [address] 09/23/2021 00:00:00 09/23/2021 13:53:05 [id number] [facility] [place] [address] [place] [address] 10/25/2021 00:00:00 10/25/2021 10:21:20 [id number] Belem Puente MD [employer] [facility] [address] [place] [address] 02/08/2023 16:31:24 02/08/2023 17:21:57 Gastroesophageal reflux disease 442862904 K21.9 Screening for malignant neoplasm of colon 208410764 Z12.11 Increased thirst 6449826 03 R63.1 R63.5 Fatigue 50471087 R53.83 Hyperlipid emia screening 533448622 Z13.220 Iron defic iency anemia 52619531 D50.9 Vitamin D deficiency 347 73745 E55.9 Thyroid fu nction tests abnormal 840760935 R94.6 Health Concerns Section Related Observation LastModified by Organization Detai ls LastModified Time None Recorded Concern Status LastModified by Organization Details LastModified Time None Recorded Advance Directives Directive None Recorded Payers Encounter Date Sequence Insurance Name Policy Number Policy Douglas Covered Member ID Douglas Member ID Guarantor Name 02/08/2023 1 [facility] [id number] Ananda Ayala [id number] Jasmine Ayala Notes Date Note Type Note Provider Name and Address Organization Details Recorded Time 02/08/2023 text/html Has thyroid nodule-had benign biopsyhad labs that showed overactive thyroid but nothing was done about itlast labs 6 years agomood is doing well on fluoxetine She thinks she is more thirsty than she should be 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
--- OUTSIDE RECORDS SUMMARY | 2024-10-31 12:27 | XMS_ITS | Referral Summary ---
Author Organization [facility] [employer] Address [address] [address] Care Team Providers Care Substitute Crossing Guard Name Role Phone Epi Shook DO Primary Care Provider [phone] Source Comments [facility],non-owned Affiliates and Associated Physician Practices is amultiple site organization consisting of ambulatory clinics and hospital sitesin [place], [place], [place] and [place]. This disclosure is being madepursuant to the Care Everywhere program and may not contain all information available regarding this patient. Last updated 18.[facility] [employer] Allergies Active Allergy Reactions Criticality Noted Date Comments Sulfa Drugs Rash Medium 06/15/2016 Medications * Be aware that medications may not be up to date on this document. Alwaysverify current medications with the patient. 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
--- OUTSIDE RECORDS SUMMARY | 2024-10-31 12:27 | XMS_ITS | Clinical Summary ---
Author Organization [facility] Address [address] [place] [address] Care Team Providers Care Blender/Braze Applicator Name Role Phone Eip Shook DO Primary Care Provider +1 [phone] Source Comments [facility],non-owned Affiliates and Associated Physician Practices is amultiple site organization consisting of ambulatory clinics and hospital sitesin [place], [place], [place] and [place]. This disclosure is being madepursuant to the Care Everywhere program and may not contain all information available regarding this patient. Last updated 18.[facility] Allergies Active Allergy Reactions Criticality Noted Date [...] Comments Blood Pressure 110/70 11/20/2018 9:27 AM PROJECT MANAGEMENT SPECIALIST Pulse 96 01/09/2020 9:18 AM CDT Temperature [...] 01/09/2020 9:18 AM CDT Plan of Treatment Health Maintenance Due Date Last Done Comments COLOGUARD (AGES 45-75) - COL ON CA SCREENING 1976 COLON MONITORING 1976 COLONOSCOPY - COLON CA SCREENING 1976 CT COLONOGRAPHY - COLON CA SCREENING 1976 Colorectal Cancer Screening 1976 FIT - COLON CA SCREENING 1976 FLEX SIG - COLON CA SCREENING 1976 LIPID TESTING 1976 MAMMOGRAM 1976 PAP SMEAR 1976 HIV SCREENING 1991 HEPATITIS C SCREENING 06/17/1994 DTAP/TDAP/TD VACCINES (1 - Tdap) 1995 HEPATITIS B VACCINE (1 of 3 - 19+ 3-dose series) 1995 SCREENING FOR DIABETES 01/09/2020 COVID-19 VACCINE ( - 2023-2 5 season) 2024 INFLUENZA VACCINE (#1) 2024 DEPRESSION SCREENING 10/09/2024 ZOSTER VACCINE (1 of 2) 2026 HIB VACCINE Aged Out No longer eligi ble based on patient's age to complete this topic HPV VACCINE Aged Out No longer eligi ble based on patient's age to complete this topic MENINGOCOCCAL (Group B) VACCINE Aged Out No longer eligible based on patient's age to complete this topic MENINGOCOCCAL VACCINE Aged Out No klaudia raul eligible based on patient's age to complete this topic PNEUMOCOCCAL VACCINE Aged Out No long er eligible based on patient's age to complete this topic Care Teams Blender/Braze Applicator Relationship Specialty Start Date End Date Epi Shook DO PCP - General Internal Medicine 11/20/18
== END 2024-10-28 09:31 | disposition home or self-care (01) ==
PROVIDERS: PCP Family Medicine; Visit Provider Internal Medicine
DX: E04.2 Nontoxic multinodular goiter (principal); E05.90 Thyrotoxicosis, unspecified without thyrotoxic crisis or storm
CPT/HCPCS: 76536

== ENCOUNTER 2024-11-22 12:22 | Outpatient (CLI) | payer OTHER, SELFPAY ==
--- NOTE | ~2024-11-22 | US_ITS ---
EXAMINATION: US FNA w image guidance DATE: 11/22/2024 INDICATION: Right thyroid nodule TECHNIQUE: A time-out was performed to verify the patient's name, date of , and procedure to be performed . The procedure and its benefits and risks were discussed with the patient. Risks specifically discus sed included bleeding and infection. The patient understood the risks and agreed to proceed. The neck was prepped and draped in the usual sterile manner. 7 mL 1% lidocaine was used for local anesthesia . 6 passes were made with a 25G needle into the lesion. Appropriate needle location was documented with continuous sonographic guidance. A sterile bandage was applied. There were no immediate compli cations. FINDINGS: Grayscale ultrasound images demonstrate biopsy needles advanced into the 1.9 cm TI RADS 3 right thyro id nodule. IMPRESSION: 1. Successful ultrasound-guided fine needle aspiration of a 1.9 cm there is 3 right thyroid nodule. Reviewed, dictated and finalized at location A. BASTING MACHINE OPERATOR
--- OUTSIDE RECORDS SUMMARY | 2024-11-22 12:29 | XMS_ITS | Clinical Summary ---
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
--- OUTSIDE RECORDS SUMMARY | 2024-11-22 12:29 | XMS_ITS | Referral Summary ---
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 CHOICE PLUS [facility] HMO/PPO Address: [facility] [address] [place] [address] Care Teams Poultry Farm Laborer Relationship Specialty Start Date End Date Colette Simpson MD PCP - General Family Medicine 04/24/24
--- OUTSIDE RECORDS SUMMARY | 2024-11-22 12:29 | XMS_ITS | Referral Summary ---
Author Organization [facility] Address [address] [place] [address] Care Team Providers Care Ruby On Rails Software Developer Name Role Phone Epi Shook DO Primary Care Provider [phone] Source Comments [facility],non-owned Affiliates and Associated Physician Practices is amultiple site organization consisting of ambulatory clinics and hospital sitesin [place], [place], [place] and [place]. This disclosure is being madepursuant to the Care Everywhere program and may not contain all information available regarding this patient. Last updated 18.[facility] To You Allergies Active Allergy Reactions Criticality Noted Date [...] Comments Blood Pressure 110/70 11/20/2018 9:27 AM SLUMBER ROOM ATTENDANT Pulse 96 01/09/2020 9:18 AM CDT Temperature 37.9 C (100.2 F) 01/09/2020 9:18 AM CDT Respiratory Rate 16 01/09/2020 9:18 AM CDT Oxygen Saturation 98% 01/09/2020 9:18 AM CDT Inhaled Oxygen Concentration - - Weight 84.4 kg (186 lb) 01/09/2020 9:18 AM CDT Height 165.1 cm (5' 5 ) 01/09/2020 9:18 AM CDT Body Mass Index 30.95 01/09/2020 9:18 AM CDT Plan of Treatment Not on file Care Teams Ruby On Rails Software Developer Relationship Specialty Start Date End Date Epi Shook DO PCP - General Internal Medicine 11/20/18
--- OUTSIDE RECORDS SUMMARY | 2024-11-22 12:29 | XMS_ITS | Clinical Summary ---
Author Organization [facility] Address [address] [facility] [place] [address] Care Team Providers Care Inside Sales Trainer Name Role Phone Epi Shook DO Primary Care Provider +[phone] Source Comments [facility],non-owned Affiliates and Associated Physician Practices is amultiple site organization consisting of ambulatory clinics and hospital sitesin [place], [place], [place] and [place]. This disclosure is being madepursuant to the Care Everywhere program and may not contain all information available regarding this patient. Last updated 18.[facility] Allergies Active Allergy Reactions Criticality Noted Date [...] Comments Blood Pressure 110/70 11/20/2018 9:27 AM STUNT WOMAN Pulse 96 01/09/2020 9:18 AM CDT Temperature [...] 1995 SCREENING FOR DIABETES 01/09/2020 COVID-19 VACCINE (1 - 2023-2 5 season) 2024 INFLUENZA VACCINE [...] age to complete this topic Care Teams Inside Sales Trainer Relationship Specialty Start Date End Date Epi Shook DO PCP - General Internal Medicine 11/20/18
--- OUTSIDE RECORDS SUMMARY | 2024-11-22 12:29 | XMS_ITS | Clinical Summary ---
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
--- OUTSIDE RECORDS SUMMARY | 2024-11-22 12:29 | XMS_ITS | Data Portability ---
Author Organization [place] [facility] [employer], Main Office Address [address] [place] [address] Care Team Providers Care Weigher And Charger Name Role Phone [place] Primary Care Provider [place] Referring Provider [phone] Assessment No assessment recorded. Plan of Treatment Reminders Order Date Submit Date Provider Last Modified By Organization Details Last Modified Time Details Appointments None recorded. Lab lipid panel, serum 2022 023 Not available 17:31:28 HbA1c (hemoglobin A1c), blood 2022 023 [email or web address] Not available 17:30:23 BMP, serum or plasma 2022 023 [email or web address] Not available 3 17:30:42 T4, free, serum 2022 023 [id number] Not available 17:32:59 TSH, serum or plasma 2022 023 [email or web address] Not available 3 17:31:04 vitamin D, 25-hydroxy, total, serum 2022 023 Not available 3 17:32:43 ferritin, serum or plasma 2022 023 [email or web address] Not available 3 17:31:47 iron + total iron-bindin g capacity (TIBC), serum 2022 023 [id number] Not available 3 17:32:06 CBC w/ auto diff 2022 023 [email or web address] Not available 17:32:22 Referral gastroenter ologist referral 2022 023 aurelia Villegas MD, [address] [facility], [facility] [address], [place], [address], 3 10:27:45 Procedures None recorded. Surgeries None recorded. Imaging None recorded. Medication Orders omeprazole 20 mg capsule,del ayed release 2022 023 [email or web address] [facility] [address] [facility], [place], [address], 18:30:14 Patient TargetsNo targets recorded. Patient InstructionsNo instructions recorded. Reason for Referral Civil Cad Designer Referral for Screening for malignant neoplasm of colon Referring Physician: Belem Puente, Family Medicine, Encounter Date: 02/08/2023 Results Created Date Observation Date Name Description Value Unit Range Abnormal Flag Note LastModifiedBy Organization Detail LastModifiedTime 02/10/20 23 02/09/2023 CBC/C OMPLE TE BLD COUNT W/DIF F white blood cells 8.9 x10'3 /uL 4.2-10 .8 Not Available [facility] (Lab) [address] [place], [address], 02/09/2023 19:32:30 02/10/20 23 02/09/2023 CBC/C OMPLE TE BLD COUNT W/DIF F red blood cells 4.70 x10'6 /uL 3.80-5 .20 Not Available [facility] (Lab) [address] [place], [address], 02/09/2023 19:32:30 02/10/20 23 02/09/2023 CBC/C OMPLE TE BLD COUNT W/DIF F hemoglobin 13.1 g/dL 12.0-1 5.6 Not Available [facility] (Lab) [address] [place], [address], 02/09/2023 19:32:30 02/10/20 23 02/09/2023 CBC/C OMPLE TE BLD COUNT W/DIF F hematocrit 40.8 % 35.7-4 5.7 Not Available [facility] (Lab) [address] [place], [address], 02/09/2023 19:32:30 02/10/20 23 02/09/2023 CBC/C OMPLE TE BLD COUNT W/DIF F mean red cell volume 86.8 fL 82.0-9 9.0 Not Available [facility] (Lab) [address] [place], [address], 02/09/2023 19:32:30 02/10/20 23 02/09/2023 CBC/C OMPLE TE BLD COUNT W/DIF F mean red cell hemoglobin 27.9 pg 27.0-3 3.0 Not Available [facility] (Lab) [address] [place], [address], 02/09/2023 19:32:30 02/10/20 23 02/09/2023 CBC/C OMPLE TE BLD COUNT W/DIF F mean RBC HGB concentratio n 32.1 g/dL 31.0-3 6.0 Not Available [facility] (Lab) [address] [place], [address], 02/09/2023 19:32:30 02/10/20 23 02/09/2023 CBC/C OMPLE TE BLD COUNT W/DIF F red cell distribution width 14.2 % 11.8-1 5.5 Not Available [facility] (Lab) [address] [place], [address], 02/09/2023 19:32:30 02/10/20 23 02/09/2023 CBC/C OMPLE TE BLD COUNT W/DIF F platelets 398 x10'3 /uL 150-40 0 Not Available [facility] (Lab) [address] [place], [address], 02/09/2023 19:32:30 02/10/20 23 02/09/2023 CBC/C OMPLE TE BLD COUNT W/DIF F mean platelet volume 10.7 fL 9.0-12 .4 Not Available [facility] (Lab) [address] [place], [address], 02/09/2023 19:32:30 02/10/20 23 02/09/2023 CBC/C OMPLE TE BLD COUNT W/DIF F neutrophils 72.6 % 39.0-7 2.0 high Not Available [facility] (Lab) [address] [place], [address], 02/09/2023 19:32:30 02/10/20 23 02/09/2023 CBC/C OMPLE TE BLD COUNT W/DIF F lymphocytes 18.4 % 16.0-4 7.0 Not Available [facility] (Lab) [address] [place], [address], 02/09/2023 19:32:30 02/10/2002/09/2023 CBC/C OMPLE TE BLD COUNT W/DIF F monocytes 7.3 % 5.0-12 .0 Not Available [facility] (Lab) [address] [place], [address], 02/09/2023 19:32:30 02/10/20 23 02/09/2023 CBC/C OMPLE TE BLD COUNT W/DIF F eosinophils 1.2 % 1.0-7. 0 Not Available [facility] (Lab) [address] [place], [address], 02/09/2023 19:32:30 02/10/20 23 02/09/2023 CBC/C OMPLE TE BLD COUNT W/DIF F basophils 0.3 % 0.0-2. 0 Not Available [facility] (Lab) [address] [place], [address], 02/09/2023 19:32:30 02/10/20 23 02/09/2023 CBC/C OMPLE TE BLD COUNT W/DIF F immature granulocytes 0.2 % 0.00-0 .50 Not Available [facility] (Lab) [address] [place], [address], 02/09/2023 19:32:30 02/10/20 23 02/09/2023 CBC/C OMPLE TE BLD COUNT W/DIF F neutrophils, absolute count 6.41 x10'3 /uL 1.5-8. 0 Not Available [facility] (Lab) [address] [place], [address], 02/09/2023 19:32:30 02/10/20 23 02/09/2023 CBC/C OMPLE TE BLD COUNT W/DIF F lymphocytes, absolute count 1.63 x10'3 /uL 1.07-3 .43 Not Available [facility] (Lab) [address] [place], [address], 02/09/2023 19:32:30 02/10/20 23 02/09/2023 CBC/C OMPLE TE BLD COUNT W/DIF F monocytes, absolute count 0.65 x10'3 /uL 0.29-0 .99 Not Available [facility] (Lab) [address] [place], [address], 02/09/2023 19:32:30 02/10/20 23 02/09/2023 CBC/C OMPLE TE BLD COUNT W/DIF F eosinophils, absolute count 0.11 x10'3 /uL 0.02-0 .53 Not Available [facility] (Lab) [address] [place], [address], 02/09/2023 19:32:30 02/10/20 23 02/09/2023 CBC/C OMPLE TE BLD COUNT W/DIF F basophils, absolute count 0.03 x10'3 /uL 0.01-0 .08 Not Available [facility] (Lab) [address] [place], [address], 02/09/2023 19:32:30 02/10/20 23 02/09/2023 CBC/C OMPLE TE BLD COUNT W/DIF F immature granulocytes ,absolute 0.02 x10'3 /uL 0.00-0 .05 Not Available [facility] (Lab) [address] [place], [address], 02/09/2023 19:32:30 02/10/20 23 02/09/2023 CBC/C OMPLE TE BLD COUNT W/DIF F nucleated red blood cells 0.0 % -0 Not Available [facility] (Lab) [address] [place], [address], 02/09/2023 19:32:30 02/10/20 23 02/09/2023 CBC/C OMPLE TE BLD COUNT W/DIF F NRBC# 0.00 x10'3 /uL Not Available [facility] (Lab) [address] [place], [address], 02/09/2023 19:32:30 02/10/20 23 02/09/2023 IRON/ TIBC PANEL total iron binding capacity 439 mcg/d L 265-47 5 Not Available [facility] (Lab) [address] [place], [address], 02/09/2023 20:03:01 02/10/20 23 02/09/2023 IRON/ TIBC PANEL % transferrin saturation 17 % 20-55 low Not Available [facility] (Lab) [address] [place], [address], 02/09/2023 20:03:01 02/10/20 23 02/09/2023 IRON/ TIBC PANEL unsaturated iron bind capacity 363 mcg/d L 126-38 2 Not Available [facility] (Lab) [address] [place], [address], 02/09/2023 20:03:01 02/10/20 23 02/09/2023 IRON/ TIBC PANEL iron 76 mcg/d L 42-175 Not Available [facility] (Lab) [address] [place], [address], 02/09/2023 20:03:01 02/10/20 23 02/09/2023 BASIC METAB OLIC PANEL sodium 135 mmol/ L 137-14 5 low Not Available [facility] (Lab) [address] [place], [address], 02/09/2023 20:00:44 02/10/20 23 02/09/2023 BASIC METAB OLIC PANEL potassium 4.1 mmol/ L 3.5-5. 1 Not Available [facility] (Lab) [address] [place], [address], 02/09/2023 20:00:44 02/10/20 23 02/09/2023 BASIC METAB OLIC PANEL chloride 105 mmol/ L 98-107 Not Available [facility] (Lab) [address] [place], [address], 02/09/2023 20:00:44 02/10/20 23 02/09/2023 BASIC METAB OLIC PANEL carbon dioxide 24 mmol/ L 22-30 Not Available [facility] (Lab) [address] [place], [address], 02/09/2023 20:00:44 02/10/20 23 02/09/2023 BASIC METAB OLIC PANEL anion gap 10.1 mmol/ L 14-22 low Not Available [facility] (Lab) [address] [place], [address], 02/09/2023 20:00:44 02/10/20 23 02/09/2023 BASIC METAB OLIC PANEL glucose 98 mg/dL 70-99 Not Available [facility] (Lab) [address] [place], [address], 02/09/2023 20:00:44 02/10/2002/09/2023 BASIC METAB OLIC PANEL BUN 15 mg/dL 8-19 Not Available [facility] (Lab) [address] [facility] [place], [address], 02/09/2023 20:00:44 02/10/2002/09/2023 BASIC METAB OLIC PANEL creatinine 0.63 mg/dL 0.66-1 .25 low Not Available [facility] (Lab) [address] [facility] [place], [address], 02/09/2023 20:00:44 02/10/2002/09/2023 BASIC METAB OLIC PANEL GFR >60 Refer ence Range : Malone ge GFR Healt hy Adult : >60 [...] or ethni c subgr oups, such as Hisme nics. Outsi de the valid ated wesley [...] calcu lator is avail able on the [facility] websi te: https ://alison rand.cyndee de la garza.o denise/pr ofess ional s/kdo qi/gf r_cal culat or Not Available [facility] (Lab) [address] [place], [address], 02/09/2023 20:00:44 02/10/20 23 02/09/2023 BASIC METAB OLIC PANEL calcium 9.0 mg/dL 8.4-10 .2 Not Available [facility] (Lab) [address] [place], [address], 02/09/2023 20:00:44 02/10/20 23 02/09/2023 VITAM IN D 25-HY DROXY vd25oh 41.4 NG/mL 30-100 Vitam in D Statu s: Defic ient: <20 ng/mL Insuf ficie nt: 20-29 ng/mL Suffi cient : 30-10 0 ng/mL Not Available [facility] (Lab) [address] [place], [address], 02/09/2023 20:09:37 02/10/20 23 02/09/2023 T4 FREE free T4 1.14 NG/dL 0.78-2 .19 Not Available [facility] (Lab) [address] [place], [address], 02/09/2023 20:10:18 02/10/20 23 02/09/2023 TSH thyroid-stim ulating hormone 0.351 uIU/m L 0.465- 4.680 low Not Available [facility] (Lab) [address] [place], [address], 02/09/2023 20:22:49 02/10/20 23 02/09/2023 KAMRYN TIN ferritin 34 NG/mL 6.24-1 37 Not Available [facility] (Lab) [address] [place], [address], 02/09/2023 20:41:50 02/10/20 23 02/09/2023 HEMOG LOBIN A1C HA1C 5.4 % 4.0-6. 0 Diabe jose alberto [place] pool Crite chance: <5.7% Consi stent with absen ce of diabe jose alberto 5.7-6 .4% Consi stent with incre ased risk for diabe jose alberto (pred iabet es) >OR=6 .5% Consi stent with diabe jose alberto REFER ENCE: Diabe jose alberto Care 2016, 39(Cummins ppl.1 ):s13 -s22 Not Available Not Available 02/09/2023 21:31:50 09/17/20 21 09/17/2021 XR, foot, 3 or more view No observ ation record ed. [id number] Not Available 12/08/2022 00:34:34 10/25/19 22 XR, foot, 3 or more view No observ ation record ed. [id number] [facility] [address] [facility] [address], [place], [address], 12/08/2022 00:34:34 11/20/19 24 11/16/2023 US, thyro id No observ ation record ed. [facility] [address] [facility] [address], [place], [address], 11/21/2023 12:02:29 Result Notes None recorded. Problems Name Problem SNOMED Code Status Onset Date Resolution Date Notes Provider Name and Address Organization Details Recorded Time Asthma 767427804 Active 2022 Apple larson CONTINUING EDUCATION DIRECTOR null, koold[employer] [facility] [employer] 16:45:06 Hyperthyroidis m 95110004 Active 2022 Apple larson CONTINUING EDUCATION DIRECTOR null, [employer] 16:45:53 Endometriosis (clinical) 986276946 Active 2022 Belem Puente MD [address] [facility] [address], [place], [address], [facility] [employer] 3 16:55:36 Gastroesophage al reflux disease 028933817 Active 2022 Belem Puente MD [address] [facility], [place], [address], [employer] 3 16:58:10 Increased thirst 842131241 Active 2022 Belem Puente MD [address], [address], [place], [address], [employer] 3 17:04:48 Fatigue 05443812 Active 2022 Belem Puente MD [address], [address], [place], [address], [employer] 3 17:04:57 Iron deficiency anemia 08276974 Active 2022 Belem Puente MD [address], [address], [place], [address], [employer] 3 17:07:05 Vitamin D deficiency 56864120 Active 2022 Belem Puente MD [address], [address], [place], [address], [employer] 3 17:07:16 Thyroid function tests abnormal 041505989 Active 2022 Belem Puente MD [address], [address], [place], [address], [employer] 3 17:09:51 Problem Notes None recorded. Procedures Surgical History Date Name Laterality Status Provider Name and Address Organization Details Recorded Time section completed Belem Puente MD [address], [place], [address], [employer] 02/08/2023 16:54:29 laparoscopy completed Belem Puente MD [address], [place], [address], [employer] 02/08/2023 16:54:38 Imaging Results Imaging Date Name Status LastModified by Organiz ation Details LastModified Time 09/17/2021 XR, foot, 3 or more view completed [id number] Information not available 12/08/2022 00:34:34 10/25/2021 XR, foot, 3 or more view completed [id number] [facility] [place] [address] [facility] [address], [place], [address], 12/08/2022 00:34:34 11/16/2023 US, thyroid completed [email or web address] [facility] [address] [facility] [address], [place], [address], 11/21/2023 12:02:29 Procedure Notes None recorded. Medical Equipment None Reported. Allergies Allergen ID Allergen Name Allergen Category Reaction Reaction Severity Criticality Documentation Date Start Date Code Code System Note Provider Name and Address Organization Details Recorded Time 14260 Substance with sulfonami de structure and antibacte rial mechanism of action (substanc e) medicatio n Not available Not available Not available 12/08/2022 53060 8003 SNOMED hives Belem Puente MD [address] [facility], [facility] [address], [place], [address] [place] [address] - [facility] [employer] 3 16:49:50 Medications Name Sig Start Date Stop [...] Date Recorded Body mass index (BMI) Body mass index (BMI) Body height Body height Body weight Body weight Provider Name and Address Organization Details Last Updated DateTime 12/08/2022 30.8 kg/m2 32.1 kg/m2 165.1 cm 165.1 cm 59533.5 9 g 60463.3 3 g Not Available [employer] 3 00:28:25 Date Recorded Body weight Body mass index (BMI) Body height Body temperature Heart rate Oxygen saturation Oxygen saturation in Arterial blood by Pulse oximetry Systolic blood pressure Diastolic blood pressure Provider Name and Address Organization Details Last Updated DateTime 3 91740.5 9 g 30.8 kg/m2 165.1 cm 98.3 [degF] 76 /min 98 % 98 % 114 mm[Hg] 76 mm[Hg] Apple larson CMA [place] [facility] [employer] [facility] 16:44:28 Social History Question Answer Notes LastModified by [employer] ion Details LastModified Time Tobacco Smoking Status Never Smoker Not Available [employer] 12/08/2022 00:27:11 What Is Your Level Of Alcohol Consumption? Occasional [email or web address] Information not available 02/08/2023 What Is Your Level Of Caffeine Consumption? Moderate [email or web address] Information not available 02/08/2023 What Type Of Diet Are You Following? REGULAR [email or web address] Information not available 02/08/2023 What Was The Date Of Your Most Recent Tobacco Screening? 02/08/2023 [email or web address] Information not available 02/08/2023 What Is Your Relationship Status? [email or web address] Information not available 02/08/2023 Do You Have Any Dietary Restrictions? No [email or web address] Information not available 02/08/2023 Sex: Female Functional Status Question Answer Note LastModified by Organization D etails LastModified Time What is your exercise level? Moderate [email or web address] Information not available 02/08/2023 Mental Status None recorded. Family History Relationship Description Onset Age of this Age Resolved Age Notes LastModified by Organization Details LastModified Time Father Essential hypertension [id number] Not available 12/08/2022 00:28:13 Mother Essential hypertension [id number] Not available 12/08/2022 00:28:13 Father Polyp of [...] SNOMED-CT Code Diagnosis ICD10 Code Diagnosis Note [id number] [facility] [address] [place] [address] 09/23/2021 00:00:00 09/23/2021 13:53:05 [id number] [facility] [address] [place] [address] 10/25/2021 00:00:00 10/25/2021 10:21:20 [id number] Belem uPente MD [facility] Primary Care [facility] [address] [facility] [address] [place] [address] 02/08/2023 16:31:24 02/08/2023 17:21:57 Gastroesophageal reflux disease 722469803 K21.9 Screening for malignant neoplasm of colon 129609106 Z12.11 Increased thirst 5773413 03 R63.1 R63.5 Fatigue 61576638 R53.83 Hyperlipid emia screening 710887534 Z13.220 Iron defic iency anemia 97143678 D50.9 Vitamin D deficiency 347 99217 E55.9 Thyroid fu nction tests abnormal 345696725 R94.6 Health Concerns Section Related Observation LastModified by Organization Detai ls LastModified Time None Recorded Concern Status LastModified by Organization Details LastModified Time None Recorded Advance Directives Directive None Recorded Payers Encounter Date Sequence Insurance Name Policy Number Policy Douglas Covered Member ID Douglas Member ID Guarantor Name 02/08/2023 1 [facility] [id number] Ananda Ayala [id number] Jasmine Ayala Notes Date Note Type Note Provider Name and Address Organization Details Recorded Time 02/08/2023 text/html Has thyroid nodule-had benign biopsyhad labs that showed overactive thyroid but nothing was done about itlast labs 6 years agomood is doing well on fluoxetine She thinks she is more thirsty than she should be sees boilermaker loftsman up to date with paps Belem Puente MD [address] [facility] [place] [address], [place], [address], [place] [facility] 03/07/2023 18:30:56 OBGyn Episode No OBEpisode recorded.
--- OUTSIDE RECORDS SUMMARY | 2024-11-22 12:29 | XMS_ITS | Patient Health Summary ---
Author Organization [facility] Address [address] [place] [address] Care Team Providers Care Environmental Services Supervisor Name Role Phone Epi Shook DO Primary Care Provider [phone] Note from [facility],non-owned Affiliates and Associated Physician Practices is amultiple site organization consisting of ambulatory clinics and hospital sitesin [place], [place], [place] and [place]. This disclosure is being madepursuant to the Care Everywhere program and may not contain all information available regarding this patient. 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 This report was approved by Bharat Peters on 07/27/2016 12:47 PM . I, Dr. GLORIA ESCOBAR D.O. have personally reviewed and interpreted this examination/study. This report was electronically signed by GLORIA ESCOBAR D.O. on 07/27/2016 1:18 PM . Narrative 07/27/2016 1:18 PM CDT Procedure: Thyroid Uptake and Imaging. Agent: 0.2 mCi of I-123 Na Iodide capsule orally History: 41-year-old female with multinodular goiter and hyperthyroidism. Most recent labs on 06/16/2016, is TSH of 0.3 micro-IU/mL, and FT4 of 1.2 ng/dL. Findings: [...] Bharat Peters on 07/27/2016 12:47 PM . I, Dr. GLORIA ESCOBAR D.O. have personally reviewed and interpreted thisexamination/study. This report was electronically signed by GLORIA ESCOBAR D.O. on07/27/2016 1:18 PM . Juan Stroud MD NM ORDERABLES * (ABNORMAL) TSH W HAMA TREATMENT (06/16/2016 12:40 PM CDT) TSH HAMA Treated 0.30(L) SEE BELOW mIU/L [facility] ([facility]) TSH Untreated 0.30(L) 0.40 - 4.50 mIU/L [facility] ([facility]) Comment: Female Reference Ranges for TSH: Premature Infants, (28-36) weeks 1st week of life 0.20-27.90 mIU/L Term infants, (>37 weeks) Serum or Cord Blood 1.00-39.00 mIU/L 1-2 days 3.20-34.60 mIU/L 3-4 days 0.70-15.40 mIU/L 5 days-4 weeks 1.70-9.10 mIU/L 1-11 months 0.80-8.20 mIU/L 1-19 years 0.50-4.30 mIU/L > or = 20 years 0.40-4.50 mIU/L TSH levels decline rapidly during the first week of life in most children, but may remain transiently elevated in a few individuals despite normal free T4 levels. For proper interpretation of an abnormal TSH from a thyroid screen, a Free T4 by [place]ialysis (TC [address]) or T4, Total (Thyroxine) (TC [address]) should be considered. Ranges First Trimester 0.26-2.66 mIU/L Second Trimester 0.55-2.73 mIU/L Third Trimester 0.43-2.91 mIU/L For additional information, please refer to http://education.[employer]uated[employer]/faq/VCZ207 (This link is being provided for informational/educational purposes only.) Test Performed at: [facility] [address] [place] [address] KIRSTIE ESTRADA MD PHD 06/16/2016 12:4 0 PM CDT 06/16/2016 12:41 PM CDT Juan Stroud MD LAB - CHEMISTRY JULIETTE NICOLE [facility] Organization Address City/State/ZIP Co de Phone Number [facility] ([facility]) * T3 FREE DIALYSIS LC/MS (06/16/2016 12:40 PM CDT) Pathologist [facility] T3 Free 272 210 - 440 pg/dL [facility] ([facility]) Comment: Reference Ranges for Free T3: 200-380 pg/dL (all trimesters) T3 Total 125 76 - 181 ng/dL [facility] ([facility]) Comment: Test Performed at: [employer] [address] [place] [address] KIRSTIE ESTRADA MD PHD 06/16/2016 12:4 0 PM CDT 06/16/2016 12:41 PM CDT Juan Stroud MD LAB - CHEMISTRY JULIETTE NICOLE Performing Organization Address [facility] de Phone Number [facility] ([facility]) * T4 FREE DIRECT DIALYSIS (06/16/2016 12:40 PM CDT) T4 Free Direct Dialysis 1.2 0.8 - 2.7 ng/dL [facility] ([facility]) Comment: Reference Ranges for T4, Free, Direct Dialysis: First Trimester: 0.9-2.0 ng/dL Second Trimester: 0.8-1.5 ng/dL Third Trimester: 0.8-1.7 ng/dL This test was developed and its analytical performance characteristics have been determined by [employer] [facility]. It has not been cleared or approved by FDA. This assay has been validated pursuant to the CLIA regulations and is used for clinical purposes. Test Performed at: [facility] [facility] [address] [place] [address] KIRSTIE ESTRADA MD PHD Blood specimen (specimen) BLOOD SPECIMEN / Unknown 06/16/2016 12:40 PM CDT 06/16/2016 12:41 PM CDT Juan Stroud MD LAB - CHEMISTRY JULIETTE NICOLE Performing Organization Address [facility]/ZIP Co de Phone Number [facility] ([facility]) * IRON + TIBC PANEL (06/16/2016 12:40 PM CDT) Iron 54 40 - 190 mcg/dL [facility] ([facility]) TIBC 411 250 - 450 mcg/dL (calc) [facility]) Iron Saturation 13 11 - 50 % (calc) [facility] ([facility]) Comment: Test Performed at: [facility] [address] [place] [address] PEGGY NOLAN DO,MPH Serum 06/16/2016 12:4 0 PM CDT 06/16/2016 12:41 PM CDT Juan Stroud MD LAB - CHEMISTRY JULIETTE NICOLE Performing Organization Address City/[facility]/ZIP Co de Phone Number [facility] ([facility]) * (ABNORMAL) TSH (06/16/2016 12:40 PM CDT) TSH 0.30(L) mIU/L [facility] ([facility]) Comment: Reference Range > or = 20 Years 0.40-4.50 Ranges First trimester 0.26-2.66 Second trimester 0.55-2.73 Third trimester 0.43-2.91 Test Performed at: [facility] [id number] [address] PEGGY NOLAN DO,MPH Blood specimen (specimen) BLOOD SPECIMEN / Unknown 06/16/2016 12:40 PM CDT 06/16/2016 12:41 PM CDT Juan Stroud MD LAB - CHEMISTRY JULIETTE NICOLE Performing Organization Address [facility] de Phone Number [facility] ([facility]) * FERRITIN (06/16/2016 12:40 PM CDT) Ferritin 17 10 - 154 ng/mL [facility] ([facility]) Comment: Test Performed at: [facility] [address] [place] [address] PEGGY NOLAN DO,MPH Blood specimen (specimen) BLOOD SPECIMEN / Unknown 06/16/2016 12:40 PM CDT 06/16/2016 12:41 PM CDT Juan Stroud MD LAB - CHEMISTRY JULIETTE NICOLE [facility] Care Teams Environmental Services Supervisor Relationship Specialty Start Date End Date Epi Shook DO PCP - General Internal Medicine 11/20/18
== END 2024-11-22 12:23 | disposition home or self-care (01) ==
PROVIDERS: PCP Family Medicine; Visit Provider Internal Medicine
DX: E04.1 Nontoxic single thyroid nodule (principal); E05.90 Thyrotoxicosis, unspecified without thyrotoxic crisis or storm; R94.6 Abnormal results of thyroid function studies
CPT/HCPCS: 10005; 88172; 88173; 88305

== ENCOUNTER 2024-12-30 06:47 | Outpatient (CLI) | payer OTHER, SELFPAY ==
--- NOTE | ~2024-12-30 | NM_ITS ---
EXAMINATION: NM thyroid scan w uptake DATE: 12/31/2024 09:31 INDICATION: Hyperthyroidism. COMPARISON: Thyroid scintigraphy 12/19/2023, ultrasound 10/28/2024 TECHNIQUE: 0.519 mCi I-123 was administered orally. Scintigraphic images of the thyroid gland were o btained at 24 hours. Thyroid uptake was calculated by the technologist. FINDINGS: The thyroid uptake is 15% (normal 10-30%), with the right lobe measuring 7% uptake and the left 9%. T here is no focal area of decreased or increased activity to suggest hypofunctioning or hyperfunctioni ng nodule. IMPRESSION: 1. Normal thyroid scintigraphy and 24-hour iodine uptake. Reviewed, dictated and finalized at location A.
--- OUTSIDE RECORDS SUMMARY | 2024-12-30 06:50 | XMS_ITS | Referral Summary ---
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 [address] [place] [address] Care Teams Forest Nursery Worker Relationship Specialty Start Date End Date Colette Simpson MD PCP - General Family Medicine 04/24/24
--- OUTSIDE RECORDS SUMMARY | 2024-12-30 06:50 | XMS_ITS | Data Portability ---
Author Organization [facility], Main Office Address [address] [place] [address] Care Team Providers Care Die Try Out Worker Stamping Name Role Phone MILAD [place] Primary Care Provider MILAD [place] Referring Provider Assessment No assessment recorded. Plan of Treatment Reminders Order Date Submit Date Provider Last Modified By Organization Details Last Modified Time Details Appointments None recorded. Lab lipid panel, serum 2022 023 Not available 17:31:28 HbA1c (hemoglobin A1c), blood 2022 023 [email or web address] Not available 17:30:23 BMP, serum or plasma 2022 023 [email or web address] Not available 3 17:30:42 T4, free, serum 2022 023 [email or web address] Not available 17:32:59 TSH, serum or plasma 2022 023 [email or web address] Not available 3 17:31:04 vitamin D, 25-hydroxy, total, serum 2022 023 [email or web address] Not available 3 17:32:43 ferritin, serum or plasma 2022 023 [email or web address] Not available 3 17:31:47 iron + total iron-bindin g capacity (TIBC), serum 2022 023 [email or web address] Not available 3 17:32:06 CBC w/ auto diff 2022 023 Not available 17:32:22 Referral gastroenter ologist referral 2022 023 aurelia Villegas MD, [address] [facility], [facility] [address], [place], [address], 3 10:27:45 Procedures None recorded. Surgeries None recorded. Imaging None recorded. Medication Orders omeprazole 20 mg capsule,del ayed release 2022 023 [email or web address] [facility] [address], [address] [facility], [place], [address], 18:30:14 Patient TargetsNo targets recorded. Patient InstructionsNo instructions recorded. Reason for Referral Hand Lacer Referral for Screening for malignant neoplasm of colon Referring Physician: Belem Puente, Family Medicine, Encounter Date: 02/08/2023 Results Created Date Observation Date Name Description Value Unit Range Abnormal Flag Note LastModifiedBy Organization Detail LastModifiedTime 02/10/20 23 02/09/2023 CBC/C OMPLE TE BLD COUNT W/DIF F white blood cells 8.9 x10'3 /uL 4.2-10 .8 Not Available [facility] (Lab) [address] [place], [address], 02/09/2023 19:32:30 02/10/20 23 02/09/2023 CBC/C OMPLE TE BLD COUNT W/DIF F red blood cells 4.70 x10'6 /uL 3.80-5 .20 Not Available [facility] (Lab) [address] [place], [address], 02/09/2023 19:32:30 02/10/20 23 02/09/2023 CBC/C OMPLE TE BLD COUNT W/DIF F hemoglobin 13.1 g/dL 12.0-1 5.6 Not Available [facility] (Lab) [address] [place], [address], 02/09/2023 19:32:30 02/10/20 23 02/09/2023 CBC/C OMPLE TE BLD COUNT W/DIF F hematocrit 40.8 % 35.7-4 5.7 Not Available [facility] (Lab) [address] [place], [address], 02/09/2023 19:32:30 02/10/20 23 02/09/2023 CBC/C OMPLE TE BLD COUNT W/DIF F mean red cell volume 86.8 fL 82.0-9 9.0 Not Available [facility] (Lab) [address] [place], [address], 02/09/2023 19:32:30 02/10/20 23 02/09/2023 CBC/C OMPLE TE BLD COUNT W/DIF F mean red cell hemoglobin 27.9 pg 27.0-3 3.0 Not Available [facility] (Lab) [address] [place], [address], 02/09/2023 19:32:30 02/10/20 23 02/09/2023 CBC/C OMPLE TE BLD COUNT W/DIF F mean RBC HGB concentratio n 32.1 g/dL 31.0-3 6.0 Not Available [facility] (Lab) [address] [place], [address], 02/09/2023 19:32:30 02/10/20 23 02/09/2023 CBC/C OMPLE TE BLD COUNT W/DIF F red cell distribution width 14.2 % 11.8-1 5.5 Not Available [facility] (Lab) [address] [place], [address], 02/09/2023 19:32:30 02/10/20 23 02/09/2023 CBC/C OMPLE TE BLD COUNT W/DIF F platelets 398 x10'3 /uL 150-40 0 Not Available [facility] (Lab) [address] [place], [address], 02/09/2023 19:32:30 02/10/20 23 02/09/2023 CBC/C OMPLE TE BLD COUNT W/DIF F mean platelet volume 10.7 fL 9.0-12 .4 Not Available [facility] (Lab) [address] [place], [address], 02/09/2023 19:32:30 02/10/20 23 02/09/2023 CBC/C OMPLE TE BLD COUNT W/DIF F neutrophils 72.6 % 39.0-7 2.0 high Not Available [facility] (Lab) [address] [place], [address], 02/09/2023 19:32:30 02/10/20 23 02/09/2023 CBC/C OMPLE TE BLD COUNT W/DIF F lymphocytes 18.4 % 16.0-4 7.0 Not Available [facility] (Lab) [address] [place], [address], 02/09/2023 19:32:30 02/10/2002/09/2023 CBC/C OMPLE TE BLD COUNT W/DIF F monocytes 7.3 % 5.0-12 .0 Not Available [facility] (Lab) [address] [place], [address], 02/09/2023 19:32:30 02/10/20 23 02/09/2023 CBC/C OMPLE TE BLD COUNT W/DIF F eosinophils 1.2 % 1.0-7. 0 Not Available [facility] (Lab) [address] [place], [address], 02/09/2023 19:32:30 02/10/20 23 02/09/2023 CBC/C OMPLE TE BLD COUNT W/DIF F basophils 0.3 % 0.0-2. 0 Not Available [facility] (Lab) [address] [place], [address], 02/09/2023 19:32:30 02/10/20 23 02/09/2023 CBC/C OMPLE TE BLD COUNT W/DIF F immature granulocytes 0.2 % 0.00-0 .50 Not Available [facility] (Lab) [address] [place], [address], 02/09/2023 19:32:30 02/10/20 23 02/09/2023 CBC/C OMPLE TE BLD COUNT W/DIF F neutrophils, absolute count 6.41 x10'3 /uL 1.5-8. 0 Not Available [facility] (Lab) [address] [place], [address], 02/09/2023 19:32:30 02/10/20 23 02/09/2023 CBC/C OMPLE TE BLD COUNT W/DIF F lymphocytes, absolute count 1.63 x10'3 /uL 1.07-3 .43 Not Available [facility] (Lab) [address] [place], [address], 02/09/2023 19:32:30 02/10/20 23 02/09/2023 CBC/C OMPLE TE BLD COUNT W/DIF F monocytes, absolute count 0.65 x10'3 /uL 0.29-0 .99 Not Available [facility] (Lab) [address] [place], [address], 02/09/2023 19:32:30 02/10/20 23 02/09/2023 CBC/C OMPLE TE BLD COUNT W/DIF F eosinophils, absolute count 0.11 x10'3 /uL 0.02-0 .53 Not Available [facility] (Lab) [address] [place], [address], 02/09/2023 19:32:30 02/10/20 23 02/09/2023 CBC/C OMPLE TE BLD COUNT W/DIF F basophils, absolute count 0.03 x10'3 /uL 0.01-0 .08 Not Available [facility] (Lab) [address] [place], [address], 02/09/2023 19:32:30 02/10/20 23 02/09/2023 CBC/C OMPLE TE BLD COUNT W/DIF F immature granulocytes ,absolute 0.02 x10'3 /uL 0.00-0 .05 Not Available [facility] (Lab) [address] [place], [address], 02/09/2023 19:32:30 02/10/20 23 02/09/2023 CBC/C OMPLE TE BLD COUNT W/DIF F nucleated red blood cells 0.0 % -0 Not Available [facility] (Lab) [address] [place], [address], 02/09/2023 19:32:30 02/10/20 23 02/09/2023 CBC/C OMPLE TE BLD COUNT W/DIF F NRBC# 0.00 x10'3 /uL Not Available [facility] (Lab) [address] [place], [address], 02/09/2023 19:32:30 02/10/20 23 02/09/2023 IRON/ TIBC PANEL total iron binding capacity 439 mcg/d L 265-47 5 Not Available [facility] (Lab) [address] [place], [address], 02/09/2023 20:03:01 02/10/20 23 02/09/2023 IRON/ TIBC PANEL % transferrin saturation 17 % 20-55 low Not Available [facility] (Lab) [address] [place], [address], 02/09/2023 20:03:01 02/10/20 23 02/09/2023 IRON/ TIBC PANEL unsaturated iron bind capacity 363 mcg/d L 126-38 2 Not Available [facility] (Lab) [address] [place], [address], 02/09/2023 20:03:01 02/10/20 23 02/09/2023 IRON/ TIBC PANEL iron 76 mcg/d L 42-175 Not Available [facility] (Lab) [address] [place], [address], 02/09/2023 20:03:01 02/10/20 23 02/09/2023 BASIC METAB OLIC PANEL sodium 135 mmol/ L 137-14 5 low Not Available [facility] (Lab) [address] [place], [address], 02/09/2023 20:00:44 02/10/20 23 02/09/2023 BASIC METAB OLIC PANEL potassium 4.1 mmol/ L 3.5-5. 1 Not Available [facility] (Lab) [address] [place], [address], 02/09/2023 20:00:44 02/10/20 23 02/09/2023 BASIC METAB OLIC PANEL chloride 105 mmol/ L 98-107 Not Available [facility] (Lab) [address] [place], [address], 02/09/2023 20:00:44 02/10/20 23 02/09/2023 BASIC METAB OLIC PANEL carbon dioxide 24 mmol/ L 22-30 Not Available [facility] (Lab) [address] [place], [address], 02/09/2023 20:00:44 02/10/20 23 02/09/2023 BASIC METAB OLIC PANEL anion gap 10.1 mmol/ L 14-22 low Not Available [facility] (Lab) [address] [place], [address], 02/09/2023 20:00:44 02/10/20 23 02/09/2023 BASIC METAB OLIC PANEL glucose 98 mg/dL 70-99 Not Available [facility] (Lab) [address] [place], [address], 02/09/2023 20:00:44 02/10/2002/09/2023 BASIC METAB OLIC PANEL BUN 15 mg/dL 8-19 Not Available [facility] (Lab) [address] [facility] [place], [address], 02/09/2023 20:00:44 02/10/2002/09/2023 BASIC METAB OLIC PANEL creatinine 0.63 mg/dL 0.66-1 .25 low Not Available [facility] (Lab) [address] [facility] [place], [address], 02/09/2023 20:00:44 02/10/2002/09/2023 BASIC METAB OLIC PANEL GFR >60 Refer ence Range : [place] ge GFR Healt hy Adult : >60 [...] or ethni c subgr oups, such as Hisnh nics. Outsi de the valid ated wesley [...] calcu lator is avail able on the [facility] websi te: https ://alison rand.cyndee de la garza.o denise/pr ofess ional s/kdo qi/gf r_cal culat or Not Available [facility] (Lab) [address] [place], [address], 02/09/2023 20:00:44 02/10/20 23 02/09/2023 BASIC METAB OLIC PANEL calcium 9.0 mg/dL 8.4-10 .2 Not Available [facility] (Lab) [address] [place], [address], 02/09/2023 20:00:44 02/10/20 23 02/09/2023 VITAM IN D 25-HY DROXY vd25oh 41.4 NG/mL 30-100 Vitam in D Statu s: Defic ient: <20 ng/mL Insuf ficie nt: 20-29 ng/mL Suffi cient : 30-10 0 ng/mL Not Available [facility] (Lab) [address] [place], [address], 02/09/2023 20:09:37 02/10/20 23 02/09/2023 T4 FREE free T4 1.14 NG/dL 0.78-2 .19 Not Available [facility] (Lab) [address] [place], [address], 02/09/2023 20:10:18 02/10/20 23 02/09/2023 TSH thyroid-stim ulating hormone 0.351 uIU/m L 0.465- 4.680 low Not Available [facility] (Lab) [address] [place], [address], 02/09/2023 20:22:49 02/10/20 23 02/09/2023 KAMRYN TIN ferritin 34 NG/mL 6.24-1 37 Not Available [facility] (Lab) [address] [place], [address], 02/09/2023 20:41:50 02/10/20 23 02/09/2023 HEMOG LOBIN [...] more view No observ ation record ed. [id number] Not Available 12/08/2022 00:34:34 10/25/19 22 XR, foot, 3 or more view No observ ation record ed. [id number] [facility] [place] [address] [facility] [address], [place], [address], 12/08/2022 00:34:34 11/20/19 24 11/16/2023 US, thyro id No observ ation record ed. [facility] [address] [facility] [address], [place], [address], 11/21/2023 12:02:29 Result Notes None recorded. 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, [employer] [facility] 16:45:06 Hyperthyroidis m 83532318 Active 2022 Apple larson ELECTRIC MOTOR REPAIR SUPERVISOR null, [employer] 16:45:53 Endometriosis (clinical) 346717957 Active 2022 Belem Puente MD [address] [facility] [address], [place], [address], [facility] [employer] 3 16:55:36 Gastroesophage al reflux disease 089839475 Active 2022 Belem Puente MD [address] [facility], [place], [address], [employer] 3 16:58:10 Increased thirst 318164354 Active 2022 Belem Puente MD [address], [place], [address], [employer] 3 17:04:48 Fatigue 80267740 Active 2022 Belem Puente MD [address], [place], [address], [employer] 3 17:04:57 Iron deficiency anemia 78769501 Active 2022 Belem Puente MD [address], [place], [address], [employer] 3 17:07:05 Vitamin D deficiency 89240933 Active 2022 Belem Puente MD [address], [address], [place], [address], [employer] 3 17:07:16 Thyroid function tests abnormal 933646504 Active 2022 Belem Puente MD [address], [place], [address], [employer] 3 17:09:51 Problem Notes None recorded. Procedures Surgical History Date Name Laterality Status Provider Name and Address Organization Details Recorded Time section completed Belem Puente MD [address], [place], [address], [employer] 02/08/2023 16:54:29 laparoscopy completed Belem Puente MD [address], [place], [address], [employer] 02/08/2023 16:54:38 Imaging Results Imaging Date Name Status LastModified by Organiz ation Details LastModified Time 09/17/2021 XR, foot, 3 or more view completed [id number] Information not available 12/08/2022 00:34:34 10/25/2021 XR, foot, 3 or more view completed [id number] [facility] [address] [facility] [address], [place], [address], 12/08/2022 00:34:34 11/16/2023 US, thyroid completed [email or web address] [address] [facility] [address], [place], [address], 11/21/2023 12:02:29 Procedure Notes None recorded. Medical Equipment None Reported. Allergies Allergen ID Allergen Name Allergen Category Reaction Reaction Severity Criticality Documentation Date Start Date Code Code System Note Provider Name and Address Organization Details Recorded Time 84436 Substance with sulfonami de structure and antibacte rial mechanism of action (substanc e) medicatio n Not available Not available Not available 12/08/2022 48179 8003 SNOMED hives Belem Puente MD [address] [facility], [facility] [address], [place], [address] [place] [address] - [facility] [employer] 16:49:50 Medications Name Sig Start Date Stop [...] Updated DateTime 09/23/2021 30.8 kg/m2 165.1 cm 63968.59 g Not Available [employer] 12/08/2022 00:28:25 Date Recorded Body mass index (BMI) Body height Body weight Provider Name and Address Organization Details Last Updated DateTime 10/25/2021 32.1 kg/m2 165.1 cm 90266.33 g Not Available [employer] 12/08/2022 00:28:25 Date Recorded Body weight Body mass index (BMI) Body height Body temperature Heart rate Oxygen saturation Oxygen saturation in Arterial blood by Pulse oximetry Systolic blood pressure Diastolic blood pressure Provider Name and Address Organization Details Last Updated DateTime 3 55226.5 9 g 30.8 kg/m2 165.1 cm 98.3 [degF] 76 /min 98 % 98 % 114 mm[Hg] 76 mm[Hg] Apple larson CMA [place] [facility] 16:44:28 Social History Question Answer Notes LastModified by Organizat ion Details LastModified Time Tobacco Smoking Status Never Smoker Not Available [facility] 12/08/2022 00:27:11 What Is Your Level Of Alcohol Consumption? Occasional [email or web address] Information not available 02/08/2023 What Is Your Level Of Caffeine Consumption? Moderate [email or web address] Information not available 02/08/2023 What Type Of Diet Are You Following? REGULAR [email or web address] Information not available 02/08/2023 What Was The Date Of Your Most Recent Tobacco Screening? 02/08/2023 [email or web address] Information not available 02/08/2023 What Is Your Relationship Status? [email or web address] Information not available 02/08/2023 Do You Have Any Dietary Restrictions? No [email or web address] Information not available 02/08/2023 Sex: Female Functional Status Question Answer Note LastModified by Organization D etails LastModified Time What is your exercise level? Moderate [email or web address] Information not available 02/08/2023 Mental Status None recorded. Family History Relationship Description Onset Age of this Age Resolved Age Notes LastModified by Organization Details LastModified Time Father Essential hypertension [id number] Not available 12/08/2022 00:28:13 Mother Essential hypertension [id number] Not available 12/08/2022 00:28:13 Father Polyp of [...] SNOMED-CT Code Diagnosis ICD10 Code Diagnosis Note [id number] [facility] [place] [address] [facility] [address] [place] [address] 09/23/2021 00:00:00 09/23/2021 13:53:05 [id number] [facility] [place] [address] [facility] [address] [place] [address] 10/25/2021 00:00:00 10/25/2021 10:21:20 [id number] Belem Puente MD [facility] [address] [facility] [address] [place] [address] 02/08/2023 16:31:24 02/08/2023 17:21:57 Gastroesophageal reflux disease 723301410 K21.9 Screening for malignant neoplasm of colon 431002246 Z12.11 Increased thirst 2833898 03 R63.1 R63.5 Fatigue 92682478 R53.83 Hyperlipid emia screening 969732195 Z13.220 Iron defic iency anemia 66515460 D50.9 Vitamin D deficiency 347 60564 E55.9 Thyroid fu nction tests abnormal 601215405 R94.6 Health Concerns Section Related Observation LastModified by Organization Detai ls LastModified Time None Recorded Concern Status LastModified by Organization Details LastModified Time None Recorded Advance Directives Directive None Recorded Payers Encounter Date Sequence Insurance Name Policy Number Policy Douglas Covered Member ID Douglas Member ID Guarantor Name 02/08/2023 1 [facility] [id number] Ananda Ayala [id number] Jasmine Ayala Notes Date Note Type Note Provider Name and Address Organization Details Recorded Time 02/08/2023 text/html Has thyroid nodule-had benign biopsyhad labs that showed overactive thyroid but nothing was done about itlast labs 6 years agomood is doing well on fluoxetine She thinks she is more thirsty than she should be sees plant assigner up to date with paps Belem Puente MD [address] [facility], [facility] [address], [place], [address], [facility] 03/07/2023 18:30:56 OBGyn Episode No OBEpisode recorded.
--- OUTSIDE RECORDS SUMMARY | 2024-12-30 06:50 | XMS_ITS | Clinical Summary ---
Author Organization [facility] Care Thread Address [address] [facility] [place] [address] Care Team Providers Care Youth Support Worker Name Role Phone Epi Shook DO Primary Care Provider [phone] Source Comments [facility],non-owned Affiliates and Associated Physician Practices is amultiple site organization consisting of ambulatory clinics and hospital sitesin [place], [place], [place] and [place]. This disclosure is being madepursuant to the Care Everywhere program and may not contain all information available regarding this patient. 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
--- OUTSIDE RECORDS SUMMARY | 2024-12-30 06:50 | XMS_ITS | Clinical Summary ---
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
--- OUTSIDE RECORDS SUMMARY | 2024-12-30 06:50 | XMS_ITS | Clinical Summary ---
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
== END 2024-12-30 06:48 | disposition home or self-care (01) ==
PROVIDERS: PCP Family Medicine; Visit Provider Internal Medicine
DX: E04.1 Nontoxic single thyroid nodule (principal); R94.6 Abnormal results of thyroid function studies; E05.90 Thyrotoxicosis, unspecified without thyrotoxic crisis or storm
CPT/HCPCS: 78014; A9516